=== PATIENT | male | born 1945 | race Caucasian/White ===

== ENCOUNTER 2016-08-18 09:37 | Emergency (ER) | payer OTHER, MEDICARE ==
[~2016-08-18] VITALS: Ht 177.8 cm; Wt 91.6 kg
[2016-08-18] MEDS ORDERED: OMEP40CA2 PO (09:59)
[2016-08-18] MEDS ORDERED: LISI40TAB PO (09:59)
[2016-08-18] MEDS ORDERED: ASPI81TA85 PO (09:59)
[2016-08-18] MEDS ORDERED: ATEN50TA2 PO (09:59)
[2016-08-18] MEDS ORDERED: ATOR1TAB21 PO (09:59)
[2016-08-18] MEDS ORDERED: LOSA100T36 PO (09:59)
[2016-08-18] MEDS ORDERED: HYDR12.55 PO (09:59)
[2016-08-18] MEDS ORDERED: PARO40TA87 PO (09:59)
--- NOTE | 2016-08-18 10:36 | REP ---
Clinical: Dyspnea. Cough. Technique: Portable semiupright. Comparison: 03/16/2012. Findings: The mediastinum and cardiac silhouette are relatively stable and normal for portable technique. Very mild cardiomegaly cannot be excluded. Lung ott demonstrate chronic interstitial changes. Subtle superimposed atelectasis cannot be excluded. No focal consolidation, effusion, or pneumothorax. Impression: Chronic stable changes. Cannot exclude subtle basilar atelectasis. Signed by Brian Holt MD 08/18/2016 10:28 A
[2016-08-18 10:47] LABS: BASO # 0.1 K/mm3 (0.0-0.2); BASO % 0.5 % (0.0-1.0); EOS # 0.3 K/mm3 (0.0-0.50); EOS % 1.8 % (0.0-3.0); LARGE UNSTAINED CELL # 0.3 K/mm3 (0.0-0.4); LARGE UNSTAINED CELL % 1.8 % (0.0-4.0); LYMPH # 2.2 K/mm3 (1.5-4.5); LYMPH % 12.5 % (24.0-44.0); MEAN CORPUSCULAR HEMOGLOBIN 31.3 pg (27.0-33.0); MEAN CORPUSCULAR HGB CONC 34.7 g/dl (32.0-36.5); MEAN CORPUSCULAR VOLUME 90.4 fl (80.0-96.0); MONO # 1.1 K/mm3 (0.0-0.8); MONO % 7.3 % (0.0-5.0); NEUTROPHILS # 11.8 K/mm3 (1.8-7.7); PLATELET COUNT, AUTOMATED 263 k/mm3 (150-450); RED CELL DISTRIBUTION WIDTH 12.1 % (11.5-14.5); WHITE BLOOD COUNT 15.5 K/mm3 (4.0-10.0)
[2016-08-18] MEDS ORDERED: ALBUTEROL SULFATE 2.5 MG/0.5 ML INH NEB SOLN NEB ONE ×8 (11:15→15:30)
[2016-08-18 11:16] LABS: ANION GAP 7 MEQ/L (8-16); BLOOD UREA NITROGEN 10 MG/DL (7-18); CALCIUM LEVEL 9.4 MG/DL (8.8-10.2); CARBON DIOXIDE LEVEL 31 MEQ/L (21-32); CHLORIDE LEVEL 102 MEQ/L (98-107); GLOMERULAR FILTRATION RATE > 60.0 (>49); GLUCOSE, FASTING 106 MG/DL (80-110); POTASSIUM SERUM 3.6 MEQ/L (3.5-5.1); SODIUM LEVEL 140 MEQ/L (136-145)
[2016-08-18] MEDS ORDERED: IPRATROPIUM 0.5MG/ALBUTEROL 2.5MG INH SOL UD 3ML (DUONEB)(J7620) NEB ONE (13:30)
[2016-08-18] MEDS ORDERED: ALBUTEROL SULFATE 2.5 MG/0.5 ML INH NEB SOLN INH ONE (13:30)
[2016-08-18] MEDS ORDERED: hydroCHLOROthiazide 25 MG TAB PO ONE (13:45)
[2016-08-18] MEDS ORDERED: LOSARTAN 50 MG TAB PO ONE (13:45)
[2016-08-18] MEDS ORDERED: ATENOLOL 50 MG TAB PO ONE (13:45)
[2016-08-18] MEDS ORDERED: LISINOPRIL 40 MG TAB PO ONE (13:45)
[2016-08-18] MEDS ORDERED: ATORVASTATIN 20 MG TAB PO ONE (13:45)
[2016-08-18] MEDS ORDERED: PARoxetine 20 MG TAB PO ONE (13:45)
[2016-08-18 14:26] VITALS: BP 132/98
[2016-08-18 14:38] VITALS: O2SAT 90
[2016-08-18] MEDS ORDERED: predniSONE 20 MG TAB PO ONE (15:15)
[2016-08-18] MEDS ORDERED: predniSONE 50 MG TAB PO ONE (15:15)
[2016-08-18] MEDS ORDERED: MOXIFLOXACIN 400 MG TAB PO ONE (15:15)
[2016-08-18] MEDS ORDERED: ALBU83IN INH (15:34)
[2016-08-18] MEDS ORDERED: PRED20TA PO (15:36)
[2016-08-18] MEDS ORDERED: MOXI1TAB PO (15:37)
--- NOTE | 2016-08-19 11:36 | ECGEPIP ---
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
== END 2016-08-18 15:58 | disposition home or self-care (01) ==
LOC: M ED 11:25
DX: J20.9 Acute bronchitis, unspecified (principal); R09.02 Hypoxemia; I10 Essential (primary) hypertension; Z86.73 Personal history of transient ischemic attack (TIA), and cerebral infarction without residual deficits; R25.1 Tremor, unspecified; Z99.81 Dependence on supplemental oxygen; F17.200 Nicotine dependence, unspecified, uncomplicated; Z79.899 Other long term (current) drug therapy; Z79.82 Long term (current) use of aspirin

== ENCOUNTER 2018-09-13 04:33 | Emergency (ER) | payer OTHER, MEDICARE ==
[~2018-09-13] VITALS: Ht 177.8 cm; Wt 90.9 kg
[~2018-09-13 04:33] MED LIST: ALBU83IN INH; ASPI81TA85 PO; ATEN50TA2 PO; ATOR1TAB21 PO; HYDR12.55 PO; LISI40TA PO; LOSA100T50 PO; MOXI1TAB PO; OMEP40CA2 PO; PARO40TA3 PO; PRED20TA PO
[2018-09-13] MEDS ORDERED: methylPREDNISolone INJ 125 MG/2 ML VIAL (J2930) IV ONE (05:00)
[2018-09-13] MEDS: IPRATROPIUM 0.5MG/ALBUTEROL 2.5MG INH SOL UD 3ML (DUONEB)(J7620) NEB PRN ×2 (05:09→05:10)
[2018-09-13 05:17] LABS: ABG BASE EXCESS 3.4 (-2.0-2.0); ABG HCO3 29.6 MEQ/L (22.0-26.0); ABG PARTIAL PRESSURE CO2 50.9 mmHg (35.0-45.0); ABG PARTIAL PRESSURE O2 65.5 mmHg (75.0-100.0); ABG STANDARD HCO3 27.3 MEQ/L (22.0-26.0); ABG TOTAL CO2 31.2 MEQ/L (23.0-31.0); ABG pH (ARTERIAL) 7.383 UNITS (7.350-7.450)
[2018-09-13] MEDS ORDERED: OMEP-218 PO (05:19)
[2018-09-13] MEDS ORDERED: MULT1TAB8 PO (05:19)
[2018-09-13] MEDS ORDERED: K-TA10TA2 PO (05:19)
[2018-09-13] MEDS ORDERED: FOLI400T PO (05:19)
[2018-09-13] MEDS ORDERED: VITA500C24 PO (05:19)
[2018-09-13 05:43] LABS: BASO # 0.1 10^3/uL (0.0-0.2); BASO % 0.4 % (0.0-1.0); EOS # 0.5 10^3/uL (0.0-0.50); EOS % 2.3 % (0.0-3.0); HEMATOCRIT 48.5 % (42.0-52.0); LYMPH # 2.6 10^3/uL (1.5-4.5); LYMPH % 12.5 % (24.0-44.0); MONO % 9.7 % (0.0-5.0); NEUTROPHILS # 15.7 10^3/uL (1.8-7.7); NEUTROPHILS % 74.6 % (36.0-66.0); PLATELET COUNT, AUTOMATED 281 10^3/uL (150-450); RED BLOOD COUNT 5.16 10^6/uL (4.30-6.10)
--- NOTE | 2018-09-13 05:53 | REP ---
Clinical: Cough and dyspnea . Comparison: 08/18/2016 . Technique: PA and lateral. Findings: The mediastinum and cardiac silhouette are normal. The lung ott demonstrate chronic-appearing changes without acute consolidation, effusion, or pneumothorax. The skeletal structures are intact and normal. Impression: 1. No acute cardiopulmonary process. Electronically Signed by Brian Holt MD 09/13/2018 05:44 A
[2018-09-13 06:07] LABS: BLOOD UREA NITROGEN 12 MG/DL (7-18); CALCIUM LEVEL 8.7 MG/DL (8.8-10.2); CARBON DIOXIDE LEVEL 34 MEQ/L (21-32); CHLORIDE LEVEL 101 MEQ/L (98-107); CK-MB VALUE MASS 1.8 NG/ML (<3.6); CPK CREATINE PHOSPHOKINASE 83 U/L (39-308); CREATININE FOR GFR 0.92 MG/DL (0.70-1.30); GLOMERULAR FILTRATION RATE > 60.0 (>42); GLUCOSE, FASTING 85 MG/DL (70-100); MB/CK RELATIVE INDEX 2.17 (< OR =4); NT-PRO BNP 877 PG/ML (<125); POTASSIUM SERUM 3.8 MEQ/L (3.5-5.1); SODIUM LEVEL 141 MEQ/L (136-145); TROPONIN I < 0.02 NG/ML (< 0.10)
[2018-09-13 06:30] VITALS: BP 170/87
[2018-09-13] MEDS ORDERED: [UNRECOGNIZED DRUG - OTHER] XX (06:56)
[2018-09-13] MEDS ORDERED: ZITHTAB2 PO (06:56)
[2018-09-13] MEDS ORDERED: PRED10TA2 PO (06:56)
[2018-09-13] MEDS ORDERED: Home Oxygen (06:56)
[2018-09-13] MEDS ORDERED: IPRA0.00 NEB (06:56)
--- NOTE | 2018-09-14 13:09 | ECGEPIP ---
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
== END 2018-09-13 07:06 | disposition home or self-care (01) ==
LOC: M ED 04:33
DX: J44.1 Chronic obstructive pulmonary disease with (acute) exacerbation (principal); R09.02 Hypoxemia; I10 Essential (primary) hypertension; E78.5 Hyperlipidemia, unspecified; F25.9 Schizoaffective disorder, unspecified; Z79.899 Other long term (current) drug therapy; Z79.82 Long term (current) use of aspirin; F17.210 Nicotine dependence, cigarettes, uncomplicated
CPT/HCPCS: 36600; 71045; 80048; 82550; 82553; 82803; 83605; 83880; 84443; 84484; 85025; 87040; 93005; 93041; 94640; 96374; 99285; J2930

== ENCOUNTER → 2018-12-11 | Outpatient (CLI) | payer OTHER, MEDICARE ==
[~2018-12-11] MED LIST changes: +FOLI400T PO; +Home Oxygen; +IPRA0.00 NEB; +K-TA10TA2 PO; +MULT1TAB8 PO; +OMEP-218 PO; +PRED10TA2 PO; +VITA500C24 PO; +ZITHTAB2 PO; +[UNRECOGNIZED DRUG - OTHER] XX
--- NOTE | 2018-12-11 11:31 | REP ---
Low-dose lung cancer screening CT Indication: Nicotine dependence. Comparison: None Technique: Axial low-dose CT of the chest was performed and reviewed in lung reformatted images only. No intravenous contrast was administered. Findings: The upper airways are patent. There is no suspicious nodule. There is bilateral linear/nodular atelectasis or scarring within the upper lobes anteriorly. There is bibasilar atelectasis. There is a tiny calcified granuloma the within the right lower lobe. There is no pleural effusion. Note is made of atherosclerotic calcification of the thoracic aorta and coronary arteries. Heart size is normal. There is no pericardial effusion. Note is made of old healed rib fracture deformity on the left. Impression: Lung-RADS 1. Continue annual screening with low-dose CT in 12 months. Electronically Signed by Vera Murillo MD 12/11/2018 11:23 A
== END ==
LOC: M RAD 10:52
PROVIDERS: ATTEND Internal Medicine Pulmonary Disease
DX: Z12.2 Encounter for screening for malignant neoplasm of respiratory organs (principal); F17.210 Nicotine dependence, cigarettes, uncomplicated

== ENCOUNTER → 2019-01-17 | Outpatient (CLI) | payer OTHER ==
[~2019-01-17] MED LIST changes: -OMEP40CA2 PO; +OMEP40CA97 PO
[2019-01-17 10:49] LABS: ABG BASE EXCESS 2.6 (-2.0-2.0); ABG HCO3 27.8 MEQ/L (22.0-26.0); ABG O2 SATURATION 95.4 % (95.0-99.0); ABG PARTIAL PRESSURE CO2 44.3 mmHg (35.0-45.0); ABG PARTIAL PRESSURE O2 72.6 mmHg (75.0-100.0); ABG STANDARD HCO3 26.8 MEQ/L (22.0-26.0); ABG TOTAL CO2 29.1 MEQ/L (23.0-31.0); ABG pH (ARTERIAL) 7.415 UNITS (7.350-7.450)
--- NOTE | 2019-01-17 11:32 | PFTRPT ---
Height: 68.50 Inches Weight: 205.00 Lbs BSA: 2.08 Diagnosis: J44.9 DATE OF STUDY: 01/17/2019 ORDERED BY: Dr. Mejia Spirometry: Pre and post bronchodilator study of excellent technical quality. Forced vital capacity reduced. FEV1 out of proportion. Obstructive index is, therefore, reduced. Flow Volume Loop: Expiratory limb of the flow volume loop consistent with very significant flow rate limitation. No significant bronchodilator response identified. Lung Volumes: Total lung capacity elevated. Residual volume consistent with very significant air trapping. Diffusing Capacity: Diffusing capacity is significantly reduced but is appropriate for alveolar volume. Hemoglobin: Hemoglobin acceptable at 13.1. Airway Mechanics: Airway resistance elevated with concomitant decrease in airway conductance. IMPRESSION: Moderate to severe obstructive ventilatory impairment with underlying air trapping and decrease in the absolute diffusing capacity. Please correlate clinically. MTDD
== END ==
LOC: M CARPUL 01-15 09:20
PROVIDERS: ATTEND Internal Medicine Pulmonary Disease
DX: J44.9 Chronic obstructive pulmonary disease, unspecified (principal)

== ENCOUNTER → 2019-09-18 | Outpatient (CLI) | payer OTHER ==
[2019-09-18 14:16] LABS: ALBUMIN 3.8 GM/DL (3.2-5.2); BLOOD UREA NITROGEN 23 MG/DL (7-18); CALCIUM LEVEL 9.6 MG/DL (8.8-10.2); CARBON DIOXIDE LEVEL 32 MEQ/L (21-32); CHLORIDE LEVEL 104 MEQ/L (98-107); CREATININE FOR GFR 1.03 MG/DL (0.70-1.30); GLOMERULAR FILTRATION RATE > 60.0 (>42); GLUCOSE, FASTING 114 MG/DL (70-100); MAGNESIUM LEVEL 2.2 MG/DL (1.8-2.4); NT-PRO BNP 52 PG/ML (<125); PHOSPHORUS LEVEL 2.9 MG/DL (2.5-4.9); POTASSIUM SERUM 4.1 MEQ/L (3.5-5.1); SODIUM LEVEL 138 MEQ/L (136-145)
== END ==
LOC: M PLALAB 11:39
PROVIDERS: ATTEND Internal Medicine Cardiovascular Disease
DX: R06.02 Shortness of breath (principal); I10 Essential (primary) hypertension

== ENCOUNTER → 2020-09-11 | Outpatient (CLI) | payer OTHER ==
[~2020-09-11] MED LIST changes: -ASPI81TA85 PO; +ASPI81TA86 PO; -FOLI400T PO; +FOLI400T13 PO; -LISI40TA PO; +LISI40TA4 PO
--- NOTE | 2020-09-14 16:07 | SLEEPCENT ---
NOCTURNAL POLYSOMNOGRAPHY DATE: 09/11/2020 ORDERED BY: Shant Hallman M.D. Nocturnal polysomnography was performed for the evaluation of sleep physiology in this patient with a history of excessive somnolence. 8 hours and 27 minutes of data were reviewed. There were 218.5 minutes of sleep identified. Sleep latency was prolonged at 203 minutes. REM sleep was not achieved. Overall sleep architecture showed poor progression with fragmentation. Sleep efficiency was only 43.8%. The electrocardiogram showed an irregular supraventricular rhythm, average heart rate 80 beats per minute, but heart rate range 50 to 90. EEG showed normal waveforms for wake and sleep. There were 75 respiratory events identified of 10 seconds in duration or greater for an apnea-hypopnea index of 20.6. The events were primarily obstructive, not exclusive to sleep stage nor body position. Arousals from respiratory events occurred 8 times per hour and oxygen desaturations were seen into the low 80s. Some activity was appreciated in the limb leads. Limb movement arousal index was 4.1. IMPRESSION: Obstructive sleep apnea syndrome (G47.33), 20.6 RECOMMENDATION: The patient should be encouraged to return to [facility] for [facility]. In the interim, alcohol and sedative avoidance should be practiced and caution exercised during the operation of motor vehicles.
== END ==
LOC: M SLEEP 20:00
PROVIDERS: ATTEND Family Medicine
DX: G47.33 Obstructive sleep apnea (adult) (pediatric) (principal)

== ENCOUNTER → 2020-10-22 | Outpatient (CLI) | payer OTHER ==
[~2020-10-22] MED LIST changes: +OMEP40CA4 PO; -OMEP40CA97 PO
--- NOTE | 2020-10-23 12:41 | SLEEPCENT ---
DATE: 10/22/2020 CPAP TITRATION ORDERED BY: Nocturnal polysomnography was performed for the titration of pressure therapy in this patient with obstructive sleep apnea syndrome, apnea-hypopnea index of 20.6. For testing a ResMed AirFit F20 full face mask of large size was used, 4 cm of water pressure were applied to the circuit, and the lights were extinguished. Eight hours and 10 minutes of data were reviewed. There were 216 minutes of sleep identified. Sleep latency was quite prolonged at 241 minutes. The patient did not achieve REM sleep. Sleep architecture showed some persistence of fragmentation and poor progression. Overall sleep efficiency was reduced at 45%. The electrocardiogram showed a sinus rhythm with PVC s. Average heart rate of 60 beats per minute. Rate ranged 40-80. EEG showed coarsening in background and fluoxetine-related eye movements. No other focal events were identified there were normal waveforms for wake and sleep. Persistence of respiratory events prompted an increase in pressure therapy and despite optimal mask fit and minimal air leak, the patient was changed to a bilevel device. Best sleep was seen on an inspiratory pressure of 10 over expiratory of 4. This was achieved late in the test. IMPRESSIONS: Obstructive sleep apnea syndrome (G47.33). RECOMMENDATION: Initiation of pressure therapy, inspiratory pressure of 10 over expiratory pressure of 4. Close clinical followup will be necessary as the titration was less than ideal pressure being achieved only late in the study. cc: Shant Valverde MD
== END ==
LOC: M SLEEP 20:05
PROVIDERS: ATTEND Family Medicine
DX: G47.33 Obstructive sleep apnea (adult) (pediatric) (principal)

== ENCOUNTER → 2020-11-11 | Outpatient (CLI) | payer OTHER ==
--- NOTE | 2020-11-11 11:40 | REP ---
INDICATION: J43.1 PANLOBULAR EMPHYSEMA. COMPARISON: 09/03/2018 TECHNIQUE: Two views FINDINGS: The lungs are emphysematous but free of active parenchymal disease. The heart is not enlarged. There is no failure. The mediastinum and pleural surfaces are unremarkable. No significant change since the previous study of 09/13/2018. IMPRESSION: No active process. <Electronically signed by Laith Slater > 11/11/20 [id number]
== END ==
LOC: M PLAIMG 10:42
PROVIDERS: ATTEND Internal Medicine Pulmonary Disease
DX: J43.1 Panlobular emphysema (principal)

== ENCOUNTER → 2020-12-09 | Outpatient (CLI) | payer OTHER ==
--- NOTE | 2020-12-09 16:17 | REP ---
INDICATION: SHORTNESS OF BREATH. COMPARISON: Multiple the latest 11/12/2019 TECHNIQUE: PA and lateral FINDINGS: The cardiomediastinal silhouette is stable. The heart is not enlarged. Basilar fibrotic changes noted status quo. No acute patchy parenchymal opacities or pleural effusions have developed. There is no change in the osseous structures. IMPRESSION: Stable chronic changes without evidence of acute cardiopulmonary disease. <Electronically signed by Pedro Pablo Melchor > 12/09/20 [id number]
[2020-12-09 17:55] LABS: BASO # 0.1 10^3/uL (0.0-0.2); BASO % 0.6 % (0.0-1.0); EOS # 0.5 10^3/uL (0.0-0.5); EOS % 4.2 % (0.0-3.0); HEMATOCRIT 44.4 % (42.0-52.0); HEMOGLOBIN 14.7 g/dl (13.5-17.5); LYMPH # 1.6 10^3/uL (1.5-5.0); MEAN CORPUSCULAR HEMOGLOBIN 29.6 pg (27.0-33.0); MEAN CORPUSCULAR HGB CONC 33.1 g/dl (32.0-36.5); MEAN CORPUSCULAR VOLUME 89.3 fl (80.0-96.0); MONO # 0.8 10^3/uL (0.0-0.8); MONO % 6.6 % (2.0-8.0); NEUTROPHILS # 9.3 10^3/uL (1.5-8.5); NEUTROPHILS % 74.4 % (36.0-66.0); PLATELET COUNT, AUTOMATED 398 10^3/uL (150-450); RED BLOOD COUNT 4.97 10^6/uL (4.30-6.10); WHITE BLOOD COUNT 12.5 10^3/uL (4.0-10.0)
[2020-12-09 18:14] LABS: BLOOD UREA NITROGEN 18 MG/DL (7-18); CALCIUM LEVEL 9.2 MG/DL (8.8-10.2); CARBON DIOXIDE LEVEL 33 MEQ/L (21-32); CHLORIDE LEVEL 98 MEQ/L (98-107); CREATININE FOR GFR 1.02 MG/DL (0.70-1.30); GLOMERULAR FILTRATION RATE > 60.0 (>42); GLUCOSE, FASTING 108 MG/DL (70-100); NT-PRO BNP 121 PG/ML (<125); POTASSIUM SERUM 4.7 MEQ/L (3.5-5.1); SODIUM LEVEL 134 MEQ/L (136-145)
== END ==
LOC: M PLAIMG 14:52
PROVIDERS: ATTEND Physician Assistant
DX: R06.02 Shortness of breath (principal)

== ENCOUNTER → 2021-03-05 | Outpatient (CLI) | payer OTHER ==
--- NOTE | 2021-03-06 18:54 | REP ---
INDICATION: SMOKER COMPARISON: 12/11/2018 TECHNIQUE: Axial noncontrast images from the thoracic inlet to the upper abdomen using low-dose lung screening technique (LDCT). FINDINGS: Moderate emphysematous changes and chronic scattered interstitial changes are again noted. 2 mm calcified granuloma in the right lower lobe remains stable. There is a small new area of non solid somewhat nodular/linear density along the perifissural apical aspect of the right major fissure. No acute consolidation, significant solid nodule, or mass lesion appreciated. No effusion. No pneumothorax. Tracheobronchial tree is patent. Mediastinum demonstrates stable atherosclerotic changes to the thoracic aorta and coronary arteries. IMPRESSION: Lung-RADS category 2. No suspicious nodule or mass. Perifissural non solid density at the apical margin of the right major fissure. Management recommendations include [address] follow-up examination. <Electronically signed by Brian Holt > 03/06/21 [id number]
== END ==
LOC: M RAD 15:17
PROVIDERS: ATTEND Internal Medicine Pulmonary Disease
DX: Z12.2 Encounter for screening for malignant neoplasm of respiratory organs (principal); Z87.891 Personal history of nicotine dependence

== ENCOUNTER 2021-09-16 17:33 | Inpatient (IN) | payer OTHER ==
[~2021-09-16] VITALS: Ht 177.8 cm; Wt 115.9 kg
[~2021-09-16 17:33] MED LIST changes: +ALBU2.5V10 INH; -ALBU83IN INH; +LOSA100T45 PO; -LOSA100T50 PO; +OMEP-173 PO; -OMEP-218 PO
[2021-09-16] MEDS ORDERED: ALBUTEROL SULFATE 2.5 MG/0.5 ML INH NEB SOLN NEB ONE (17:55)
[2021-09-16] MEDS ORDERED: methylPREDNISolone 125MG 2ML VIAL IV ONE (17:55)
[2021-09-16] MEDS ORDERED: IPRATROPIUM 0.5MG/ALBUTEROL 2.5MG INH SOL UD 3ML (DUONEB) NEB ONE (17:55)
[2021-09-16] MEDS ORDERED: FUROSEMIDE 40MG/4ML VIAL (J1940) IV ONE (18:05)
[2021-09-16] MEDS ORDERED: NITROGLYCERIN 2% OINT 1 GM *U/D* PKT TOP ONE (18:15)
[2021-09-16 18:17] LABS: ABG BASE EXCESS -0.1 (-2.0-2.0); ABG HCO3 26.5 MEQ/L (22.0-26.0); ABG O2 SATURATION 99.2 % (95.0-99.0); ABG PARTIAL PRESSURE CO2 51.1 mmHg (35.0-45.0); ABG PARTIAL PRESSURE O2 169.3 mmHg (75.0-100.0); ABG STANDARD HCO3 24.4 MEQ/L (22.0-26.0); ABG TOTAL CO2 28.1 MEQ/L (23.0-31.0); ABG pH (ARTERIAL) 7.333 UNITS (7.350-7.450)
[2021-09-16 18:30] LABS: BASO # 0.1 10^3/uL (0.0-0.2); BASO % 0.5 % (0.0-1.0); EOS # 0.5 10^3/uL (0.0-0.5); EOS % 3.6 % (0.0-3.0); HEMATOCRIT 43.2 % (42.0-52.0); LYMPH # 1.9 10^3/uL (1.5-5.0); LYMPH % 14.5 % (24.0-44.0); MEAN CORPUSCULAR HEMOGLOBIN 29.7 pg (27.0-33.0); MEAN CORPUSCULAR HGB CONC 32.4 g/dl (32.0-36.5); MEAN CORPUSCULAR VOLUME 91.7 fl (80.0-96.0); MONO # 1.5 10^3/uL (0.0-0.8); MONO % 11.4 % (2.0-8.0); NEUTROPHILS # 9.2 10^3/uL (1.5-8.5); NEUTROPHILS % 69.2 % (36.0-66.0); PLATELET COUNT, AUTOMATED 376 10^3/uL (150-450); RED BLOOD COUNT 4.71 10^6/uL (4.30-6.10); WHITE BLOOD COUNT 13.3 10^3/uL (4.0-10.0)
[2021-09-16 19:02] LABS: ALBUMIN 3.4 GM/DL (3.2-5.2); ALT/SGPT 33 U/L (12-78); BILIRUBIN,DIRECT 0.2 MG/DL (0.0-0.2); BILIRUBIN,TOTAL 0.9 MG/DL (0.2-1.0); BLOOD UREA NITROGEN 13 MG/DL (7-18); CALCIUM LEVEL 8.6 MG/DL (8.8-10.2); CARBON DIOXIDE LEVEL 31 MEQ/L (21-32); CHLORIDE LEVEL 104 MEQ/L (98-107); CREATININE FOR GFR 1.03 MG/DL (0.70-1.30); GLOMERULAR FILTRATION RATE > 60.0 (>42); GLUCOSE, FASTING 121 MG/DL (70-100); NT-PRO BNP 112 PG/ML (<125); POTASSIUM SERUM 3.9 MEQ/L (3.5-5.1); SODIUM LEVEL 140 MEQ/L (136-145); THYROXINE (T4) 5.6 UG/DL (4.5-12.0); TOTAL PROTEIN 6.8 GM/DL (6.4-8.2)
[2021-09-16] MEDS ORDERED: CARVedilol 6.25 MG TAB PO ONE (19:10)
[2021-09-16] MEDS ORDERED: LOSARTAN 50MG TABLET PO ONE (19:10)
[2021-09-16] MEDS ORDERED: ALBUTEROL SULFATE 2.5 MG/0.5 ML INH NEB SOLN NEB PRN (22:30)
[2021-09-16] MEDS ORDERED: GLUCAGON INJ 1MG VIAL SC PRN (22:30)
[2021-09-16] MEDS ORDERED: GLUCOSE 4GM CHEW TABLET PO PRN (22:30)
[2021-09-16] MEDS ORDERED: DEXTROSE 50% 50 ML SYRINGE IV PRN (22:30)
[2021-09-16] MEDS ORDERED: SPIR1CAP INH (23:47)
[2021-09-16] MEDS ORDERED: ATOR80TA59 PO (23:47)
[2021-09-16] MEDS ORDERED: AMLO1TAB25 PO (23:47)
[2021-09-16] MEDS ORDERED: OMEP-173 PO (23:47)
[2021-09-16] MEDS ORDERED: SPIR-10 PO (23:47)
[2021-09-16] MEDS ORDERED: SYMB16INH INH (23:47)
[2021-09-16] MEDS ORDERED: C 50TAB PO (23:47)
[2021-09-16] MEDS ORDERED: LORA-622 PO (23:47)
[2021-09-16] MEDS ORDERED: CARV6.25 PO (23:47)
[2021-09-16] MEDS ORDERED: POTA10TA67 PO (23:47)
[2021-09-16] MEDS ORDERED: HOME MED LIST COMPLETE! XX SCH (23:50)
[2021-09-17] MEDS: methylPREDNISolone 40MG 1ML VIAL IV SCH ×2 (00:12→06:33)
[2021-09-17] MEDS: HEPARIN SOD (PORCINE) 5000UNITS/ML 1ML VIAL/SYRINGE SC SCH ×3 (06:33→20:50)
[2021-09-17 07:05] LABS: BLOOD UREA NITROGEN 20 MG/DL (7-18); CALCIUM LEVEL 8.7 MG/DL (8.8-10.2); CARBON DIOXIDE LEVEL 28 MEQ/L (21-32); CHLORIDE LEVEL 105 MEQ/L (98-107); CREATININE FOR GFR 1.11 MG/DL (0.70-1.30); GLOMERULAR FILTRATION RATE > 60.0 (>42); GLUCOSE, FASTING 147 MG/DL (70-100); MAGNESIUM LEVEL 1.8 MG/DL (1.8-2.4); PHOSPHORUS LEVEL 2.9 MG/DL (2.5-4.9); POTASSIUM SERUM 4.2 MEQ/L (3.5-5.1); SODIUM LEVEL 139 MEQ/L (136-145)
[2021-09-17] MEDS: INSULIN LISPRO (NovoLOG) PER UNIT SC SCH ×3 (07:56→17:30)
[2021-09-17] MEDS ORDERED: ALBUTEROL SULFATE 2.5 MG/0.5 ML INH NEB SOLN NEB PRN (08:15)
[2021-09-17 08:37] LABS: HEMATOCRIT 40.4 % (42.0-52.0); HEMOGLOBIN 13.2 g/dl (13.5-17.5); MEAN CORPUSCULAR HEMOGLOBIN 29.7 pg (27.0-33.0); MEAN CORPUSCULAR HGB CONC 32.7 g/dl (32.0-36.5); MEAN CORPUSCULAR VOLUME 90.8 fl (80.0-96.0); PLATELET COUNT, AUTOMATED 366 10^3/uL (150-450); RED BLOOD COUNT 4.45 10^6/uL (4.30-6.10); WHITE BLOOD COUNT 11.9 10^3/uL (4.0-10.0)
[2021-09-17] MEDS: IPRATROPIUM 0.5MG/ALBUTEROL 2.5MG INH SOL UD 3ML (DUONEB) NEB SCH ×4 (08:51→19:58)
[2021-09-17] MEDS: methylPREDNISolone 125MG 2ML VIAL IV SCH ×2 (15:55→20:50)
[2021-09-17 16:00] VITALS: BP 156/91
[2021-09-17 17:58] VITALS: BP 142/83
[2021-09-17 19:45] VITALS: BP 138/85
[2021-09-17 23:25] VITALS: BP 144/82
[2021-09-18 04:05] VITALS: BP 147/69
[2021-09-18] MEDS: methylPREDNISolone 125MG 2ML VIAL IV SCH ×3 (05:33→21:48)
[2021-09-18] MEDS: HEPARIN SOD (PORCINE) 5000UNITS/ML 1ML VIAL/SYRINGE SC SCH ×3 (05:34→21:49)
[2021-09-18 06:00] LABS: HEMATOCRIT 39.6 % (42.0-52.0); HEMOGLOBIN 12.9 g/dl (13.5-17.5); MEAN CORPUSCULAR HEMOGLOBIN 30.1 pg (27.0-33.0); MEAN CORPUSCULAR HGB CONC 32.6 g/dl (32.0-36.5); MEAN CORPUSCULAR VOLUME 92.3 fl (80.0-96.0); PLATELET COUNT, AUTOMATED 332 10^3/uL (150-450); RED BLOOD COUNT 4.29 10^6/uL (4.30-6.10); WHITE BLOOD COUNT 28.4 10^3/uL (4.0-10.0)
[2021-09-18 06:17] LABS: BLOOD UREA NITROGEN 23 MG/DL (7-18); CALCIUM LEVEL 9.1 MG/DL (8.8-10.2); CARBON DIOXIDE LEVEL 31 MEQ/L (21-32); CHLORIDE LEVEL 105 MEQ/L (98-107); CREATININE FOR GFR 1.11 MG/DL (0.70-1.30); GLOMERULAR FILTRATION RATE > 60.0 (>42); GLUCOSE, FASTING 146 MG/DL (70-100); POTASSIUM SERUM 4.4 MEQ/L (3.5-5.1); SODIUM LEVEL 139 MEQ/L (136-145)
[2021-09-18 08:00] VITALS: BP 147/84
[2021-09-18] MEDS: IPRATROPIUM 0.5MG/ALBUTEROL 2.5MG INH SOL UD 3ML (DUONEB) NEB SCH ×4 (08:21→19:26)
[2021-09-18] MEDS: SYMBICORT 160/4.5MCG INHALER 6GM INH SCH ×2 (08:21→19:25)
[2021-09-18] MEDS: PARoxetine 20MG TABLET PO SCH (08:59)
[2021-09-18] MEDS: SPIRONOLACTONE 25 MG TAB PO SCH (08:59)
[2021-09-18] MEDS: TIOTROPIUM INHALER/CAPSULE (SPIRIVA) INH SCH (09:00)
[2021-09-18] MEDS ORDERED: cefTRIAXone SOD 1 GM in D5W MINI-BAG PLUS 50 ML IV SCH (09:00)
[2021-09-18] MEDS: ASCORBIC ACID 500 MG TAB PO SCH (09:00)
[2021-09-18] MEDS: OMEPRAZOLE 20MG CAP PO SCH (09:00)
[2021-09-18] MEDS: LORATADINE 10 MG TAB PO SCH (09:00)
[2021-09-18] MEDS: POTASSIUM CHLORIDE 10MEQ SR TABLET PO SCH (09:01)
[2021-09-18] MEDS: CARVedilol 6.25 MG TAB PO SCH ×2 (09:01→21:50)
[2021-09-18] MEDS: INSULIN LISPRO (NovoLOG) PER UNIT SC SCH ×2 (09:02→12:00)
[2021-09-18] MEDS: DOXYCYCLINE HYCLATE 100MG TABLET PO SCH ×2 (09:13→21:49)
[2021-09-18] MEDS ORDERED: ISOVUE-370 76% 100ML VIAL As Ordered ONE (12:47)
[2021-09-18 16:00] VITALS: BP 153/90
[2021-09-18 19:59] VITALS: BP 163/84
[2021-09-18] MEDS: ATORVASTATIN 20 MG TAB PO SCH (21:49)
[2021-09-18] MEDS: LOSARTAN 50MG TABLET PO SCH (21:57)
[2021-09-19 04:15] VITALS: BP 155/87
[2021-09-19] MEDS: HEPARIN SOD (PORCINE) 5000UNITS/ML 1ML VIAL/SYRINGE SC SCH ×3 (05:58→21:16)
[2021-09-19] MEDS: methylPREDNISolone 125MG 2ML VIAL IV SCH ×3 (05:58→21:16)
[2021-09-19 06:36] LABS: HEMATOCRIT 38.6 % (42.0-52.0); HEMOGLOBIN 12.6 g/dl (13.5-17.5); MEAN CORPUSCULAR HEMOGLOBIN 29.8 pg (27.0-33.0); MEAN CORPUSCULAR HGB CONC 32.6 g/dl (32.0-36.5); MEAN CORPUSCULAR VOLUME 91.3 fl (80.0-96.0); PLATELET COUNT, AUTOMATED 351 10^3/uL (150-450); RED BLOOD COUNT 4.23 10^6/uL (4.30-6.10)
[2021-09-19 06:40] LABS: WHITE BLOOD COUNT 30.7 10^3/uL (4.0-10.0)
[2021-09-19 07:05] LABS: BLOOD UREA NITROGEN 22 MG/DL (7-18); CALCIUM LEVEL 9.5 MG/DL (8.8-10.2); CARBON DIOXIDE LEVEL 28 MEQ/L (21-32); CHLORIDE LEVEL 107 MEQ/L (98-107); CREATININE FOR GFR 0.94 MG/DL (0.70-1.30); GLOMERULAR FILTRATION RATE > 60.0 (>42); GLUCOSE, FASTING 141 MG/DL (70-100); POTASSIUM SERUM 4.1 MEQ/L (3.5-5.1); SODIUM LEVEL 142 MEQ/L (136-145)
[2021-09-19] MEDS: IPRATROPIUM 0.5MG/ALBUTEROL 2.5MG INH SOL UD 3ML (DUONEB) NEB SCH ×4 (07:14→20:00)
[2021-09-19] MEDS: TIOTROPIUM INHALER/CAPSULE (SPIRIVA) INH SCH (07:15)
[2021-09-19] MEDS: SYMBICORT 160/4.5MCG INHALER 6GM INH SCH ×2 (07:15→20:20)
[2021-09-19 08:00] VITALS: BP 140/80
[2021-09-19] MEDS: PARoxetine 20MG TABLET PO SCH (09:37)
[2021-09-19] MEDS: OMEPRAZOLE 20MG CAP PO SCH (09:37)
[2021-09-19] MEDS: SPIRONOLACTONE 25 MG TAB PO SCH (09:37)
[2021-09-19] MEDS: ASCORBIC ACID 500 MG TAB PO SCH (09:37)
[2021-09-19] MEDS: LORATADINE 10 MG TAB PO SCH (09:37)
[2021-09-19] MEDS: CARVedilol 6.25 MG TAB PO SCH ×2 (09:38→21:15)
[2021-09-19] MEDS: POTASSIUM CHLORIDE 10MEQ SR TABLET PO SCH (09:39)
[2021-09-19 16:00] VITALS: BP 154/80
[2021-09-19 20:02] VITALS: BP 158/80
[2021-09-19] MEDS: ATORVASTATIN 20 MG TAB PO SCH (21:15)
[2021-09-19] MEDS: LOSARTAN 50MG TABLET PO SCH (21:15)
[2021-09-20 03:46] VITALS: BP 150/70
[2021-09-20] MEDS: HEPARIN SOD (PORCINE) 5000UNITS/ML 1ML VIAL/SYRINGE SC SCH ×3 (05:18→20:03)
[2021-09-20] MEDS: methylPREDNISolone 125MG 2ML VIAL IV SCH ×2 (05:19→17:56)
[2021-09-20 06:12] LABS: HEMATOCRIT 37.8 % (42.0-52.0); HEMOGLOBIN 12.5 g/dl (13.5-17.5); MEAN CORPUSCULAR HEMOGLOBIN 30.2 pg (27.0-33.0); MEAN CORPUSCULAR HGB CONC 33.1 g/dl (32.0-36.5); MEAN CORPUSCULAR VOLUME 91.3 fl (80.0-96.0); PLATELET COUNT, AUTOMATED 326 10^3/uL (150-450); RED BLOOD COUNT 4.14 10^6/uL (4.30-6.10); WHITE BLOOD COUNT 25.3 10^3/uL (4.0-10.0)
[2021-09-20 06:35] LABS: BLOOD UREA NITROGEN 21 MG/DL (7-18); CALCIUM LEVEL 9.3 MG/DL (8.8-10.2); CARBON DIOXIDE LEVEL 29 MEQ/L (21-32); CHLORIDE LEVEL 106 MEQ/L (98-107); GLOMERULAR FILTRATION RATE > 60.0 (>42); GLUCOSE, FASTING 137 MG/DL (70-100); SODIUM LEVEL 142 MEQ/L (136-145)
[2021-09-20] MEDS: IPRATROPIUM 0.5MG/ALBUTEROL 2.5MG INH SOL UD 3ML (DUONEB) NEB SCH ×4 (08:00→20:00)
[2021-09-20 08:02] VITALS: BP_SYST 148; BP_SYST 164; BP_DIAS 68; BP_DIAS 85
[2021-09-20] MEDS: SYMBICORT 160/4.5MCG INHALER 6GM INH SCH ×2 (08:15→20:35)
[2021-09-20] MEDS: TIOTROPIUM INHALER/CAPSULE (SPIRIVA) INH SCH (08:16)
[2021-09-20] MEDS: SPIRONOLACTONE 25 MG TAB PO SCH (08:26)
[2021-09-20] MEDS: PARoxetine 20MG TABLET PO SCH (08:26)
[2021-09-20] MEDS: ASCORBIC ACID 500 MG TAB PO SCH (08:27)
[2021-09-20] MEDS: OMEPRAZOLE 20MG CAP PO SCH (08:27)
[2021-09-20] MEDS: CARVedilol 6.25 MG TAB PO SCH ×2 (08:27→20:03)
[2021-09-20] MEDS: LORATADINE 10 MG TAB PO SCH (08:28)
[2021-09-20] MEDS: POTASSIUM CHLORIDE 10MEQ SR TABLET PO SCH (08:28)
[2021-09-20 16:23] VITALS: BP 145/76
[2021-09-20 19:30] VITALS: BP 182/95
[2021-09-20] MEDS: LOSARTAN 50MG TABLET PO SCH (20:02)
[2021-09-20] MEDS: ATORVASTATIN 20 MG TAB PO SCH (20:03)
[2021-09-20 21:25] VITALS: BP 158/90
[2021-09-20 22:00] VITALS: BP 152/88
[2021-09-21] MEDS: methylPREDNISolone 125MG 2ML VIAL IV SCH (05:01)
[2021-09-21] MEDS: HEPARIN SOD (PORCINE) 5000UNITS/ML 1ML VIAL/SYRINGE SC SCH (05:02)
[2021-09-21 06:00] VITALS: BP 154/90
[2021-09-21 06:01] LABS: HEMATOCRIT 41.3 % (42.0-52.0); HEMOGLOBIN 13.2 g/dl (13.5-17.5); MEAN CORPUSCULAR HEMOGLOBIN 29.7 pg (27.0-33.0); MEAN CORPUSCULAR VOLUME 92.8 fl (80.0-96.0); PLATELET COUNT, AUTOMATED 353 10^3/uL (150-450); RED BLOOD COUNT 4.45 10^6/uL (4.30-6.10); WHITE BLOOD COUNT 23.4 10^3/uL (4.0-10.0)
[2021-09-21 06:33] LABS: BLOOD UREA NITROGEN 25 MG/DL (7-18); CALCIUM LEVEL 9.6 MG/DL (8.8-10.2); CARBON DIOXIDE LEVEL 33 MEQ/L (21-32); CHLORIDE LEVEL 103 MEQ/L (98-107); CREATININE FOR GFR 1.01 MG/DL (0.70-1.30); GLOMERULAR FILTRATION RATE > 60.0 (>42); GLUCOSE, FASTING 127 MG/DL (70-100); POTASSIUM SERUM 5.2 MEQ/L (3.5-5.1); SODIUM LEVEL 141 MEQ/L (136-145)
[2021-09-21] MEDS: SYMBICORT 160/4.5MCG INHALER 6GM INH SCH (08:00)
[2021-09-21] MEDS: TIOTROPIUM INHALER/CAPSULE (SPIRIVA) INH SCH (08:00)
[2021-09-21] MEDS: IPRATROPIUM 0.5MG/ALBUTEROL 2.5MG INH SOL UD 3ML (DUONEB) NEB SCH (08:00)
[2021-09-21] MEDS: OMEPRAZOLE 20MG CAP PO SCH (08:57)
[2021-09-21] MEDS: LORATADINE 10 MG TAB PO SCH (08:57)
[2021-09-21] MEDS: ASCORBIC ACID 500 MG TAB PO SCH (08:57)
[2021-09-21] MEDS: PARoxetine 20MG TABLET PO SCH (08:57)
[2021-09-21 08:58] VITALS: BP 151/91
[2021-09-21] MEDS: CARVedilol 6.25 MG TAB PO SCH (08:58)
[2021-09-21] MEDS ORDERED: PRED10TA2 PO (10:25)
[2021-09-22] MEDS ORDERED: predniSONE 20 MG TAB PO SCH (09:00)
== END 2021-09-21 11:52 | disposition home or self-care (01) | DRG 189 ==
LOC: M ED 17:33 → M ED INP 22:27 → ENRESERV 09-17 12:23 → M PCU 09-17 15:45 → M MSPAV 09-20 19:30
PROVIDERS: ADMIT Internal Medicine; ATTEND Family Medicine
PROC: 5A09357 Assistance with Respiratory Ventilation, Less than 24 Consecutive Hours, Continuous Positive Airway Pressure (ICD-10-PCS; 2021-09-16)
PROC: B246ZZZ Ultrasonography of Right and Left Heart (ICD-10-PCS; principal; 2021-09-17)
DX: J96.01 Acute respiratory failure with hypoxia (principal); J44.1 Chronic obstructive pulmonary disease with (acute) exacerbation; Z99.81 Dependence on supplemental oxygen; Z87.891 Personal history of nicotine dependence; I10 Essential (primary) hypertension; I25.10 Atherosclerotic heart disease of native coronary artery without angina pectoris; J96.02 Acute respiratory failure with hypercapnia; E78.5 Hyperlipidemia, unspecified; K21.9 Gastro-esophageal reflux disease without esophagitis; F32.A Depression, unspecified; Z79.82 Long term (current) use of aspirin; Z79.52 Long term (current) use of systemic steroids; Z79.2 Long term (current) use of antibiotics; Z20.822 Contact with and (suspected) exposure to COVID-19; G47.33 Obstructive sleep apnea (adult) (pediatric); D72.829 Elevated white blood cell count, unspecified; E78.00 Pure hypercholesterolemia, unspecified

== ENCOUNTER → 2021-11-23 | Outpatient (CLI) | payer OTHER ==
[~2021-11-23] MED LIST changes: +AMLO1TAB25 PO; +ATOR80TA59 PO; +C 50TAB PO; +CARV6.25 PO; +LORA-622 PO; +POTA10TA67 PO; +SPIR-10 PO; +SPIR1CAP INH; +SYMB16INH INH
== END ==
LOC: M RAD 10:41
PROVIDERS: ATTEND Internal Medicine Pulmonary Disease
DX: R91.8 Other nonspecific abnormal finding of lung field (principal)

== ENCOUNTER 2022-04-17 15:24 | Emergency (ER) | payer MEDICARE, OTHER ==
[~2022-04-17] VITALS: Ht 177.8 cm; Wt 114.6 kg
[2022-04-17 16:55] LABS: BASO % 0.2 % (0.0-1.0); EOS # 0.2 10^3/uL (0.0-0.5); EOS % 1.7 % (0.0-3.0); HEMATOCRIT 36.7 % (42.0-52.0); HEMOGLOBIN 11.3 g/dl (13.5-17.5); LYMPH # 1.1 10^3/uL (1.5-5.0); MEAN CORPUSCULAR HEMOGLOBIN 28.5 pg (27.0-33.0); MEAN CORPUSCULAR HGB CONC 30.8 g/dl (32.0-36.5); MEAN CORPUSCULAR VOLUME 92.7 fl (80.0-96.0); MONO # 0.6 10^3/uL (0.0-0.8); MONO % 4.5 % (2.0-8.0); NEUTROPHILS # 10.3 10^3/uL (1.5-8.5); NEUTROPHILS % 83.9 % (36.0-66.0); PLATELET COUNT, AUTOMATED 518 10^3/uL (150-450); RED BLOOD COUNT 3.96 10^6/uL (4.30-6.10); WHITE BLOOD COUNT 12.3 10^3/uL (4.0-10.0)
[2022-04-17 17:06] LABS: INR 0.97; PROTHROMBIN TIME 13.1 SECONDS (12.5-14.5)
[2022-04-17 17:07] LABS: PARTIAL THROMBOPLASTIN TIME 27.2 SECONDS (24.8-34.2)
[2022-04-17 17:17] LABS: LIPASE 421 U/L (12-53)
[2022-04-17 17:19] LABS: ALBUMIN 2.8 G/DL (3.2-5.2); ALKALINE PHOSPHATASE 606 U/L (46-116); ALT/SGPT 190 U/L (7.0-40); AST/SGOT 134 U/L (<34); BILIRUBIN,DIRECT 5.2 MG/DL (<0.4); BILIRUBIN,TOTAL 6.9 MG/DL (0.3-1.2); BLOOD UREA NITROGEN 27 MG/DL (9-23); CALCIUM LEVEL 8.6 MG/DL (8.3-10.6); CARBON DIOXIDE LEVEL 28 MMOL/L (20-31); CHLORIDE LEVEL 103 MMOL/L (98-107); CREATININE FOR GFR 1.29 MG/DL (0.70-1.30); GLUCOSE, FASTING 166 MG/DL (74-106); SODIUM LEVEL 139 MMOL/L (136-145); TOTAL PROTEIN 6.6 G/DL (5.7-8.2)
[2022-04-17 17:40] LABS: HEPATITIS B SURFACE ANTIGEN NEGATIVE (NEGATIVE)
[2022-04-17] MEDS ORDERED: ISOVUE-370 76% 100ML VIAL As Ordered ONE (17:42)
[2022-04-17 17:59] LABS: HEPATITIS C VIRUS ABY INDEX 0.1 INDEX (<0.8)
[2022-04-17 18:00] LABS: HEPATITIS B CORE ANTIBODY IGM NEGATIVE (NEGATIVE)
[2022-04-17 19:11] LABS: RSV AMPLIFICATION NEGATIVE (NEGATIVE)
[2022-04-17] MEDS ORDERED: SYMBICORT 160/4.5MCG INHALER 6GM INH ONE (23:55)
[2022-04-18] MEDS ORDERED: SYMBICORT 160/4.5MCG INHALER 6GM INH SCH (08:00)
[2022-04-18] MEDS ORDERED: NS 1,000 ML IV ONE (08:15)
[2022-04-18] MEDS ORDERED: PIPERACILLIN/TAZOBACTAM SOD 4.5 GM in D5W MINI-BAG PLUS 50 ML IV ONE (08:20)
[2022-04-18 11:05] VITALS: BP 151/85
== END 2022-04-18 11:10 | disposition short-term general hospital (02) ==
LOC: M ED 15:24
DX: U07.1 COVID-19 (principal); E80.6 Other disorders of bilirubin metabolism; R74.8 Abnormal levels of other serum enzymes; K83.8 Other specified diseases of biliary tract; K86.89 Other specified diseases of pancreas; I10 Essential (primary) hypertension; E78.9 Disorder of lipoprotein metabolism, unspecified; J44.9 Chronic obstructive pulmonary disease, unspecified; Z87.891 Personal history of nicotine dependence; Z79.899 Other long term (current) drug therapy; Z79.51 Long term (current) use of inhaled steroids
CPT/HCPCS: 74177; 80048; 80076; 83690; 85025; 85610; 85730; 86705; 86709; 86803; 87040; 87340; 87631; 93041; 96361; 96374; 99285; J2543; Q9967

== ENCOUNTER → 2022-05-20 | Outpatient (CLI) | payer MEDICARE, OTHER ==
[~2022-05-20] MED LIST changes: +CENTCHW3 PO; +LIDOCAINE 1% MDV 20ML VIAL As Ordered ONE; +MIDAZOLAM INJ 2MG/2ML VIAL As Ordered ONE; +MULT-90 PO; +NS 1,000 ML IV SCH; +POTA-151 PO; +ceFAZolin 2 GM/D5W 50 ML IV BAG As Ordered ONE; +ceFAZolin SOD 2 GM in IV 1 EA IV ONE; +diphenhydrAMINE 50MG/ML VIAL As Ordered ONE; +fentaNYL 100 MCG/2 ML INJECTION As Ordered ONE
[2022-05-20 12:00] VITALS: BP 122/66
== END ==
LOC: M IRPRO 07:47
PROVIDERS: ATTEND Specialist
DX: C25.9 Malignant neoplasm of pancreas, unspecified (principal); Z79.899 Other long term (current) drug therapy; Z88.8 Allergy status to other drugs, medicaments and biological substances
CPT/HCPCS: 36561; 87635; 99152; 99153; C1769; C1788; C1894; J0690; J2250; J3010

== ENCOUNTER → 2022-05-30 | Outpatient (CLI) | payer OTHER, MEDICARE ==
[~2022-05-30] MED LIST changes: -LIDOCAINE 1% MDV 20ML VIAL As Ordered ONE; +METO10TA2 PO; -MIDAZOLAM INJ 2MG/2ML VIAL As Ordered ONE; -NS 1,000 ML IV SCH; -ceFAZolin 2 GM/D5W 50 ML IV BAG As Ordered ONE; -ceFAZolin SOD 2 GM in IV 1 EA IV ONE; -diphenhydrAMINE 50MG/ML VIAL As Ordered ONE; -fentaNYL 100 MCG/2 ML INJECTION As Ordered ONE
== END ==
LOC: M PLARAD 12:32
PROVIDERS: ATTEND Specialist
DX: C25.0 Malignant neoplasm of head of pancreas (principal)
CPT/HCPCS: 78815; A9552

== ENCOUNTER → 2022-06-02 | Outpatient (CLI) | payer MEDICARE, OTHER ==
[~2022-06-02] MED LIST changes: +ONDA-83 PO
== END ==
LOC: M ONCR 13:03
PROVIDERS: ATTEND General Practice
DX: C25.0 Malignant neoplasm of head of pancreas (principal); J44.9 Chronic obstructive pulmonary disease, unspecified; I10 Essential (primary) hypertension; I27.9 Pulmonary heart disease, unspecified; R25.1 Tremor, unspecified; Z79.51 Long term (current) use of inhaled steroids; Z79.899 Other long term (current) drug therapy; Z87.891 Personal history of nicotine dependence; Z88.8 Allergy status to other drugs, medicaments and biological substances; Z95.5 Presence of coronary angioplasty implant and graft; Z99.81 Dependence on supplemental oxygen

== ENCOUNTER → 2022-06-07 | Outpatient (POV) | payer MEDICARE, OTHER ==
[~2022-06-07] VITALS: Ht 177.8 cm; Wt 109.0 kg
[2022-06-07 13:40] VITALS: BP 151/80
== END ==
LOC: M IRPOV 13:16
PROVIDERS: ATTEND Radiology Diagnostic Radiology
DX: Z45.2 Encounter for adjustment and management of vascular access device (principal); Z88.8 Allergy status to other drugs, medicaments and biological substances

== ENCOUNTER 2022-06-24 11:46 | Outpatient (RCR) | payer MEDICARE, OTHER | END 2022-07-01 | LOC: M ONCR 11:46 | PROVIDERS: ATTEND General Practice | DX: C25.0 Malignant neoplasm of head of pancreas (principal) ==

== ENCOUNTER 2022-08-09 11:48 | Inpatient (IN) | payer MEDICARE, OTHER ==
[~2022-08-09] VITALS: Ht 177.8 cm; Wt 113.0 kg
[~2022-08-09 11:48] MED LIST changes: +LIDO1CRE42 TOP; -LOSA100T45 PO; +LOSA100T46 PO; +PROC10TA5 PO
[2022-08-09] MEDS ORDERED: fentaNYL 100 MCG/2 ML INJECTION IV PRN (12:20)
[2022-08-09] MEDS ORDERED: methylPREDNISolone 125MG 2ML VIAL IV ONE (12:20)
[2022-08-09] MEDS ORDERED: IPRATROPIUM 0.5MG/ALBUTEROL 2.5MG INH SOL UD 3ML (DUONEB) NEB ONE (12:20)
[2022-08-09] MEDS ORDERED: ACETAMINOPHEN TAB 650MG DOSE (2X325MG) PO ONE (12:20)
[2022-08-09] MEDS ORDERED: ONDANSETRON 4MG 2ML VIAL IV ONE (12:25)
[2022-08-09 12:43] LABS: HEMOGLOBIN 9.8 g/dl (13.5-17.5); MEAN CORPUSCULAR HEMOGLOBIN 28.2 pg (27.0-33.0); MEAN CORPUSCULAR HGB CONC 32.7 g/dl (32.0-36.5); MEAN CORPUSCULAR VOLUME 86.2 fl (80.0-96.0); PLATELET COUNT, AUTOMATED 772 10^3/uL (150-450); RED BLOOD COUNT 3.48 10^6/uL (4.30-6.10); WHITE BLOOD COUNT 19.8 10^3/uL (4.0-10.0)
[2022-08-09 12:52] LABS: CK-MB VALUE MASS < 1.0 NG/ML (<3.6); LIPASE 19 U/L (12-53)
[2022-08-09 12:53] LABS: CPK CREATINE PHOSPHOKINASE 17 U/L (46-171); MB/CK RELATIVE INDEX 5.88 (< OR =4)
[2022-08-09 12:54] LABS: ALBUMIN 2.5 G/DL (3.2-5.2); ALKALINE PHOSPHATASE 360 U/L (46-116); ALT/SGPT 131 U/L (7.0-40); AST/SGOT 71 U/L (<34); BILIRUBIN,DIRECT 1.4 MG/DL (<0.4); BILIRUBIN,TOTAL 2.6 MG/DL (0.3-1.2); BLOOD UREA NITROGEN 34 MG/DL (9-23); CALCIUM LEVEL 9.1 MG/DL (8.3-10.6); CARBON DIOXIDE LEVEL 29 MMOL/L (20-31); CHLORIDE LEVEL 94 MMOL/L (98-107); GLOMERULAR FILTRATION RATE 31.2 (>42); GLUCOSE, FASTING 111 MG/DL (74-106); POTASSIUM SERUM 4.2 MMOL/L (3.5-5.1); SODIUM LEVEL 130 MMOL/L (136-145); TOTAL PROTEIN 5.8 G/DL (5.7-8.2)
[2022-08-09 12:57] LABS: RSV AMPLIFICATION NEGATIVE (NEGATIVE)
[2022-08-09 13:02] LABS: INR 1.14; PROTHROMBIN TIME 14.8 SECONDS (12.5-14.5)
[2022-08-09] MEDS ORDERED: PIPERACILLIN/TAZOBACTAM SOD 4.5 GM in D5W MINI-BAG PLUS 50 ML IV ONE (13:25)
[2022-08-09] MEDS ORDERED: NS 3,270 ML in IV 1 EA IV ONE (13:25)
[2022-08-09 13:48] LABS: ATYPICAL LYMPH 1 % (0-5); BASOPHILS 1 % (0-1); LYMPHOCYTES 7 % (16-44); MONOCYTES 15 % (0-5); NEUTROPHILS 69 % (28-66)
[2022-08-09 13:49] LABS: HYPOCHROMASIA 2+; PLATELET ESTIMATE INCREASED (NORMAL)
[2022-08-09] MEDS ORDERED: VENTAER INH (16:43)
[2022-08-09] MEDS ORDERED: MULT-6 PO (16:43)
[2022-08-09] MEDS ORDERED: FOLI0.4T5 PO (16:43)
[2022-08-09] MEDS ORDERED: IPRATROPIUM 0.5MG/ALBUTEROL 2.5MG INH SOL UD 3ML (DUONEB) NEB PRN (16:55)
[2022-08-09] MEDS: NS 1,000 ML IV SCH (16:55)
[2022-08-09] MEDS ORDERED: HOME MED LIST COMPLETE! XX SCH (16:55)
[2022-08-09] MEDS ORDERED: ALBUTEROL SULFATE 2.5MG/0.5ML INH NEB SOLN NEB PRN (17:00)
[2022-08-09] MEDS ORDERED: ONDANSETRON 4MG TAB PO PRN (17:00)
[2022-08-09] MEDS ORDERED: MIRALAX *UNIT DOSE* 17GM PACKET PO PRN (17:00)
[2022-08-09] MEDS: IPRATROPIUM 0.5MG/ALBUTEROL 2.5MG INH SOL UD 3ML (DUONEB) NEB SCH (18:09)
[2022-08-09] MEDS: PIPERACILLIN/TAZOBACTAM SOD 3.375 GM in D5W MINI-BAG PLUS 50 ML IV SCH (20:00)
[2022-08-09] MEDS: SYMBICORT 160/4.5MCG INHALER 6GM INH SCH (20:00)
[2022-08-09 20:30] VITALS: BP 117/65
[2022-08-09] MEDS: ATORVASTATIN 20 MG TAB PO SCH (21:46)
[2022-08-09] MEDS: SENNA 8.6 MG TAB (SENOKOT) PO SCH (21:46)
[2022-08-09] MEDS: CARVedilol 6.25 MG TAB PO SCH (21:47)
[2022-08-09] MEDS: HEPARIN SOD (PORCINE) 5000UNITS/ML 1ML VIAL/SYRINGE SC SCH (21:48)
[2022-08-09 23:55] VITALS: BP 117/64
[2022-08-10] MEDS: PIPERACILLIN/TAZOBACTAM SOD 3.375 GM in D5W MINI-BAG PLUS 50 ML IV SCH ×4 (02:00→20:03)
[2022-08-10] MEDS: IPRATROPIUM 0.5MG/ALBUTEROL 2.5MG INH SOL UD 3ML (DUONEB) NEB SCH ×4 (02:00→19:46)
[2022-08-10] MEDS: HEPARIN SOD (PORCINE) 5000UNITS/ML 1ML VIAL/SYRINGE SC SCH ×3 (05:52→22:05)
[2022-08-10 06:00] VITALS: BP 115/63
[2022-08-10 06:47] LABS: HEMATOCRIT 26.5 % (42.0-52.0); HEMOGLOBIN 8.8 g/dl (13.5-17.5); MEAN CORPUSCULAR HEMOGLOBIN 28.9 pg (27.0-33.0); MEAN CORPUSCULAR HGB CONC 33.2 g/dl (32.0-36.5); MEAN CORPUSCULAR VOLUME 86.9 fl (80.0-96.0); RED BLOOD COUNT 3.05 10^6/uL (4.30-6.10); WHITE BLOOD COUNT 26.4 10^3/uL (4.0-10.0)
[2022-08-10 06:50] LABS: PLATELET COUNT, AUTOMATED 579 10^3/uL (150-450)
[2022-08-10 07:01] LABS: ALBUMIN 2.1 G/DL (3.2-5.2); BILIRUBIN,TOTAL 1.1 MG/DL (0.3-1.2); CALCIUM LEVEL 8.6 MG/DL (8.3-10.6); CREATININE FOR GFR 1.87 MG/DL (0.70-1.30); GLOMERULAR FILTRATION RATE 37.7 (>42); POTASSIUM SERUM 4.5 MMOL/L (3.5-5.1); TOTAL PROTEIN 5.2 G/DL (5.7-8.2)
[2022-08-10] MEDS: SYMBICORT 160/4.5MCG INHALER 6GM INH SCH ×2 (07:40→19:46)
[2022-08-10 07:52] LABS: ATYPICAL LYMPH 2 % (0-5); LYMPHOCYTES 7 % (16-44); METAMYELOCYTES 2 % (0-0); MONOCYTES 14 % (0-5); MYELOCYTES 4 % (0-0); NEUTROPHILS 57 % (28-66); PLATELET ESTIMATE INCREASED (NORMAL)
[2022-08-10 07:53] LABS: ANISOCYTOSIS 1+
[2022-08-10] MEDS: SENNA 8.6 MG TAB (SENOKOT) PO SCH ×2 (09:23→20:02)
[2022-08-10] MEDS: OMEPRAZOLE 20MG CAP PO SCH (09:23)
[2022-08-10] MEDS: LORATADINE 10 MG TAB PO SCH (09:23)
[2022-08-10] MEDS: CARVedilol 6.25 MG TAB PO SCH ×2 (09:26→20:02)
[2022-08-10] MEDS: ASCORBIC ACID 500 MG TAB PO SCH (09:26)
[2022-08-10] MEDS: PARoxetine 20MG TABLET PO SCH (09:26)
[2022-08-10] MEDS: NS 1,000 ML IV SCH (09:27)
[2022-08-10 14:00] VITALS: BP 126/68
[2022-08-10 20:00] VITALS: BP 126/69
[2022-08-10] MEDS: ATORVASTATIN 20 MG TAB PO SCH (20:03)
[2022-08-10 23:15] VITALS: BP 117/64
[2022-08-11] MEDS: IPRATROPIUM 0.5MG/ALBUTEROL 2.5MG INH SOL UD 3ML (DUONEB) NEB SCH ×4 (01:24→19:32)
[2022-08-11] MEDS: PIPERACILLIN/TAZOBACTAM SOD 3.375 GM in D5W MINI-BAG PLUS 50 ML IV SCH ×3 (02:12→14:51)
[2022-08-11 06:00] VITALS: BP 119/69
[2022-08-11] MEDS: HEPARIN SOD (PORCINE) 5000UNITS/ML 1ML VIAL/SYRINGE SC SCH ×3 (06:20→20:35)
[2022-08-11 06:27] LABS: HEMATOCRIT 26.9 % (42.0-52.0); HEMOGLOBIN 8.6 g/dl (13.5-17.5); MEAN CORPUSCULAR HEMOGLOBIN 28.6 pg (27.0-33.0); MEAN CORPUSCULAR VOLUME 89.4 fl (80.0-96.0); PLATELET COUNT, AUTOMATED 582 10^3/uL (150-450); RED BLOOD COUNT 3.01 10^6/uL (4.30-6.10)
[2022-08-11 06:32] LABS: WHITE BLOOD COUNT 41.1 10^3/uL (4.0-10.0)
[2022-08-11 07:26] LABS: ANISOCYTOSIS 1+; ATYPICAL LYMPH 2 % (0-5); EOSINOPHILS 1 % (0-3); LYMPHOCYTES 7 % (16-44); METAMYELOCYTES 4 % (0-0); MONOCYTES 10 % (0-5); MYELOCYTES 8 % (0-0); NEUTROPHILS 60 % (28-66)
[2022-08-11 07:27] LABS: HYPOCHROMASIA 1+; POLYCHROMASIA 1+
[2022-08-11 07:29] LABS: PLATELET ESTIMATE INCREASED (NORMAL)
[2022-08-11] MEDS: SYMBICORT 160/4.5MCG INHALER 6GM INH SCH ×2 (08:07→19:32)
[2022-08-11 08:26] LABS: BASO % 0.1 % (0.0-1.0); EOS # 0.1 10^3/uL (0.0-0.5); EOS % 0.3 % (0.0-3.0); HEMATOCRIT 27.6 % (42.0-52.0); LYMPH # 1.9 10^3/uL (1.5-5.0); LYMPH % 4.4 % (24.0-44.0); MEAN CORPUSCULAR HEMOGLOBIN 28.8 pg (27.0-33.0); MEAN CORPUSCULAR HGB CONC 32.6 g/dl (32.0-36.5); MEAN CORPUSCULAR VOLUME 88.2 fl (80.0-96.0); NEUTROPHILS # 26.3 10^3/uL (1.5-8.5); NEUTROPHILS % 61.2 % (36.0-66.0); PLATELET COUNT, AUTOMATED 580 10^3/uL (150-450); RED BLOOD COUNT 3.13 10^6/uL (4.30-6.10)
[2022-08-11 08:27] LABS: C REACTIVE PROTEIN QUANTITATIV 10.4 MG/DL (<1.0)
[2022-08-11 08:30] LABS: ALBUMIN 2.3 G/DL (3.2-5.2); BILIRUBIN,TOTAL 0.5 MG/DL (0.3-1.2); CALCIUM LEVEL 8.9 MG/DL (8.3-10.6); CREATININE FOR GFR 1.47 MG/DL (0.70-1.30); GLOMERULAR FILTRATION RATE 49.7 (>42); TOTAL PROTEIN 5.1 G/DL (5.7-8.2)
[2022-08-11 08:36] LABS: MONO # 4.3 10^3/uL (0.0-0.8)
[2022-08-11] MEDS: CARVedilol 6.25 MG TAB PO SCH ×2 (08:43→20:36)
[2022-08-11] MEDS: ASCORBIC ACID 500 MG TAB PO SCH (08:43)
[2022-08-11] MEDS: SENNA 8.6 MG TAB (SENOKOT) PO SCH ×2 (08:43→20:36)
[2022-08-11] MEDS: LORATADINE 10 MG TAB PO SCH (08:43)
[2022-08-11] MEDS: OMEPRAZOLE 20MG CAP PO SCH (08:43)
[2022-08-11] MEDS: PARoxetine 20MG TABLET PO SCH (08:43)
[2022-08-11 08:44] LABS: WHITE BLOOD COUNT 42.9 10^3/uL (4.0-10.0)
[2022-08-11 12:48] LABS: APPEARANCE, URINE HAZY (CLEAR); BACTERIA, URINE AUTO NEGATIVE (NEGATIVE); BILIRUBIN, URINE AUTO NEGATIVE (NEGATIVE); BLOOD, URINE BLOOD NEGATIVE (NEGATIVE); COLOR, URINE YELLOW (YELLOW); GLUCOSE, URINE (UA) AUTO NEGATIVE (NEGATIVE); KETONE, URINE AUTO NEGATIVE (NEGATIVE); LEUKOCYTE ESTERASE, URINE AUTO NEGATIVE (NEGATIVE); NITRITE, URINE AUTO NEGATIVE (NEGATIVE); PROTEIN, URINE AUTO 1+ mg/dL (NEGATIVE); RBC, URINE AUTO 0 /HPF (0-3); SPECIFIC GRAVITY URINE AUTO 1.018 (1.002-1.035); SQUAMOUS EPITHELIAL CELL UR AU 0 /HPF (0-6); UROBILINOGEN, URINE AUTO 0.2 mg/dL (0.0-2.0); WBC, URINE AUTO 2 /HPF (0-3)
[2022-08-11 14:00] VITALS: BP 139/75
[2022-08-11] MEDS ORDERED: VANCOMYCIN HCL 1,000 MG, VIAL MATE ADAPTER 1 EACH in D5W 250 ML IV SCH (19:00)
[2022-08-11] MEDS: MEROPENEM INJ 1 GM in IV 1 EA IV SCH (20:35)
[2022-08-11] MEDS: ATORVASTATIN 20 MG TAB PO SCH (20:37)
[2022-08-11 21:00] VITALS: BP 141/79
[2022-08-11] MEDS ORDERED: VANCOMYCIN HCL 1,000 MG, VIAL MATE ADAPTER 1 EACH in D5W 250 ML IV ONE ×2 (22:00→23:00)
[2022-08-12] MEDS: IPRATROPIUM 0.5MG/ALBUTEROL 2.5MG INH SOL UD 3ML (DUONEB) NEB SCH ×4 (02:00→19:29)
[2022-08-12] MEDS: HEPARIN SOD (PORCINE) 5000UNITS/ML 1ML VIAL/SYRINGE SC SCH ×3 (05:08→21:23)
[2022-08-12] MEDS: MEROPENEM INJ 1 GM in IV 1 EA IV SCH ×3 (05:08→20:00)
[2022-08-12 06:00] VITALS: BP 146/79
[2022-08-12 06:38] LABS: HEMATOCRIT 27.2 % (42.0-52.0); HEMOGLOBIN 8.8 g/dl (13.5-17.5); MEAN CORPUSCULAR HEMOGLOBIN 28.6 pg (27.0-33.0); MEAN CORPUSCULAR HGB CONC 32.4 g/dl (32.0-36.5); MEAN CORPUSCULAR VOLUME 88.3 fl (80.0-96.0); PLATELET COUNT, AUTOMATED 531 10^3/uL (150-450); RED BLOOD COUNT 3.08 10^6/uL (4.30-6.10)
[2022-08-12 06:44] LABS: WHITE BLOOD COUNT 44.1 10^3/uL (4.0-10.0)
[2022-08-12 07:22] LABS: ANISOCYTOSIS 1+; EOSINOPHILS 1 % (0-3); LYMPHOCYTES 4 % (16-44); METAMYELOCYTES 2 % (0-0); MONOCYTES 18 % (0-5); MYELOCYTES 20 % (0-0); NEUTROPHILS 51 % (28-66); PLATELET ESTIMATE INCREASED (NORMAL)
[2022-08-12] MEDS: SYMBICORT 160/4.5MCG INHALER 6GM INH SCH ×2 (07:31→19:28)
[2022-08-12] MEDS: ASCORBIC ACID 500 MG TAB PO SCH (08:26)
[2022-08-12] MEDS: LORATADINE 10 MG TAB PO SCH (08:26)
[2022-08-12] MEDS: OMEPRAZOLE 20MG CAP PO SCH (08:26)
[2022-08-12] MEDS: PARoxetine 20MG TABLET PO SCH (08:27)
[2022-08-12] MEDS: CARVedilol 6.25 MG TAB PO SCH ×2 (08:27→20:02)
[2022-08-12] MEDS: SENNA 8.6 MG TAB (SENOKOT) PO SCH ×2 (08:30→20:00)
[2022-08-12] MEDS: TIOTROPIUM INHALER/CAPSULE (SPIRIVA) INH SCH (09:00)
[2022-08-12 13:10] LABS: BLOOD UREA NITROGEN 17 MG/DL (9-23); CALCIUM LEVEL 8.8 MG/DL (8.3-10.6); CARBON DIOXIDE LEVEL 29 MMOL/L (20-31); CHLORIDE LEVEL 105 MMOL/L (98-107); GLOMERULAR FILTRATION RATE > 60.0 (>42); GLUCOSE, FASTING 102 MG/DL (74-106); POTASSIUM SERUM 3.7 MMOL/L (3.5-5.1); SODIUM LEVEL 140 MMOL/L (136-145)
[2022-08-12 14:00] VITALS: BP 147/77
[2022-08-12 20:00] VITALS: BP 169/82
[2022-08-12] MEDS: ATORVASTATIN 20 MG TAB PO SCH (20:00)
[2022-08-12] MEDS ORDERED: VANCOMYCIN HCL 750 MG, VIAL MATE ADAPTER 1 EACH in D5W 250 ML IV SCH (21:00)
[2022-08-12] MEDS ORDERED: BUDESONIDE 180MCG INHALER (PULMICORT FLEXHALER) INH SCH (21:00)
[2022-08-12] MEDS ORDERED: zolPIDEM TARTRATE 5 MG TAB PO ONE (21:00)
[2022-08-12] MEDS: VANCOMYCIN HCL 750 MG, VIAL MATE ADAPTER 1 EACH in D5W 250 ML IV SCH (21:24)
[2022-08-12] MEDS ORDERED: VANCOMYCIN HCL 500 MG in D5W MINI-BAG PLUS 100 ML IV SCH (22:00)
[2022-08-12] MEDS: VANCOMYCIN HCL 500 MG in D5W MINI-BAG PLUS 100 ML IV SCH (22:34)
[2022-08-13] MEDS: IPRATROPIUM 0.5MG/ALBUTEROL 2.5MG INH SOL UD 3ML (DUONEB) NEB SCH ×4 (02:30→19:37)
[2022-08-13] MEDS: MEROPENEM INJ 1 GM in IV 1 EA IV SCH ×3 (05:04→19:48)
[2022-08-13] MEDS: HEPARIN SOD (PORCINE) 5000UNITS/ML 1ML VIAL/SYRINGE SC SCH ×3 (05:05→21:20)
[2022-08-13 05:25] VITALS: BP 153/87
[2022-08-13 06:13] LABS: HEMATOCRIT 26.8 % (42.0-52.0); HEMOGLOBIN 8.8 g/dl (13.5-17.5); MEAN CORPUSCULAR HEMOGLOBIN 28.8 pg (27.0-33.0); MEAN CORPUSCULAR HGB CONC 32.8 g/dl (32.0-36.5); MEAN CORPUSCULAR VOLUME 87.6 fl (80.0-96.0); RED BLOOD COUNT 3.06 10^6/uL (4.30-6.10)
[2022-08-13 06:17] LABS: PLATELET COUNT, AUTOMATED 419 10^3/uL (150-450); WHITE BLOOD COUNT 39.1 10^3/uL (4.0-10.0)
[2022-08-13 06:33] LABS: ALBUMIN 2.4 G/DL (3.2-5.2); ALKALINE PHOSPHATASE 389 U/L (46-116); ALT/SGPT 124 U/L (7.0-40); AST/SGOT 68 U/L (<34); BILIRUBIN,TOTAL 0.6 MG/DL (0.3-1.2); BLOOD UREA NITROGEN 13 MG/DL (9-23); CALCIUM LEVEL 8.8 MG/DL (8.3-10.6); CARBON DIOXIDE LEVEL 31 MMOL/L (20-31); CHLORIDE LEVEL 103 MMOL/L (98-107); CREATININE FOR GFR 1.01 MG/DL (0.70-1.30); GLOMERULAR FILTRATION RATE > 60.0 (>42); GLUCOSE, FASTING 101 MG/DL (74-106); POTASSIUM SERUM 3.4 MMOL/L (3.5-5.1); SODIUM LEVEL 140 MMOL/L (136-145); TOTAL PROTEIN 5.2 G/DL (5.7-8.2)
[2022-08-13 06:58] LABS: EOSINOPHILS 1 % (0-3); LYMPHOCYTES 9 % (16-44); METAMYELOCYTES 7 % (0-0); MONOCYTES 8 % (0-5); MYELOCYTES 18 % (0-0); NEUTROPHILS 43 % (28-66)
[2022-08-13 07:00] LABS: ANISOCYTOSIS 1+; PLATELET ESTIMATE NORMAL (NORMAL); POLYCHROMASIA 1+
[2022-08-13] MEDS: TIOTROPIUM INHALER/CAPSULE (SPIRIVA) INH SCH (07:29)
[2022-08-13] MEDS: SYMBICORT 160/4.5MCG INHALER 6GM INH SCH ×2 (07:30→19:37)
[2022-08-13] MEDS ORDERED: POTASSIUM CHLORIDE 10MEQ SR TABLET PO ONE (07:30)
[2022-08-13] MEDS: LORATADINE 10 MG TAB PO SCH (08:18)
[2022-08-13] MEDS: ASCORBIC ACID 500 MG TAB PO SCH (08:18)
[2022-08-13] MEDS: PARoxetine 20MG TABLET PO SCH (08:18)
[2022-08-13] MEDS: CARVedilol 6.25 MG TAB PO SCH ×2 (08:19→21:25)
[2022-08-13] MEDS: OMEPRAZOLE 20MG CAP PO SCH (08:19)
[2022-08-13] MEDS: SENNA 8.6 MG TAB (SENOKOT) PO SCH ×2 (08:19→21:23)
[2022-08-13] MEDS: VANCOMYCIN HCL 750 MG, VIAL MATE ADAPTER 1 EACH in D5W 250 ML IV SCH ×2 (09:39→21:25)
[2022-08-13] MEDS: SPIRONOLACTONE 25 MG TAB PO SCH (10:53)
[2022-08-13] MEDS: VANCOMYCIN HCL 500 MG in D5W MINI-BAG PLUS 100 ML IV SCH ×2 (10:53→22:52)
[2022-08-13 14:00] VITALS: BP 152/87
[2022-08-13] MEDS: guaiFENesin ER 600 MG TAB PO SCH ×2 (15:22→21:24)
[2022-08-13] MEDS ORDERED: FUROSEMIDE 20 MG TAB PO ONE (15:30)
[2022-08-13] MEDS ORDERED: ALPRAZolam 0.5 MG TAB PO ONE (21:00)
[2022-08-13] MEDS: LOSARTAN 50MG TABLET PO SCH (21:23)
[2022-08-13] MEDS: ATORVASTATIN 20 MG TAB PO SCH (21:24)
[2022-08-13 21:59] VITALS: BP 149/88
[2022-08-14] MEDS: IPRATROPIUM 0.5MG/ALBUTEROL 2.5MG INH SOL UD 3ML (DUONEB) NEB SCH ×4 (01:24→19:18)
[2022-08-14] MEDS: MEROPENEM INJ 1 GM in IV 1 EA IV SCH ×3 (04:06→21:04)
[2022-08-14] MEDS: HEPARIN SOD (PORCINE) 5000UNITS/ML 1ML VIAL/SYRINGE SC SCH (05:32)
[2022-08-14 06:39] VITALS: BP 152/89
[2022-08-14] MEDS: TIOTROPIUM INHALER/CAPSULE (SPIRIVA) INH SCH (07:18)
[2022-08-14] MEDS: SYMBICORT 160/4.5MCG INHALER 6GM INH SCH ×2 (07:18→19:18)
[2022-08-14 08:31] LABS: HEMATOCRIT 26.9 % (42.0-52.0); HEMOGLOBIN 8.7 g/dl (13.5-17.5); MEAN CORPUSCULAR HEMOGLOBIN 28.6 pg (27.0-33.0); MEAN CORPUSCULAR HGB CONC 32.3 g/dl (32.0-36.5); MEAN CORPUSCULAR VOLUME 88.5 fl (80.0-96.0); PLATELET COUNT, AUTOMATED 316 10^3/uL (150-450); RED BLOOD COUNT 3.04 10^6/uL (4.30-6.10)
[2022-08-14 08:36] LABS: WHITE BLOOD COUNT 36.4 10^3/uL (4.0-10.0)
[2022-08-14] MEDS: ASCORBIC ACID 500 MG TAB PO SCH (08:50)
[2022-08-14] MEDS: LORATADINE 10 MG TAB PO SCH (08:50)
[2022-08-14] MEDS: OMEPRAZOLE 20MG CAP PO SCH (08:50)
[2022-08-14] MEDS: guaiFENesin ER 600 MG TAB PO SCH ×2 (08:50→21:11)
[2022-08-14] MEDS: SPIRONOLACTONE 25 MG TAB PO SCH (08:50)
[2022-08-14] MEDS: PARoxetine 20MG TABLET PO SCH (08:51)
[2022-08-14] MEDS: CARVedilol 6.25 MG TAB PO SCH ×2 (08:51→21:13)
[2022-08-14] MEDS: SENNA 8.6 MG TAB (SENOKOT) PO SCH ×2 (08:51→21:14)
[2022-08-14 08:55] LABS: ALBUMIN 2.4 G/DL (3.2-5.2); ALKALINE PHOSPHATASE 415 U/L (46-116); ALT/SGPT 145 U/L (7.0-40); AST/SGOT 81 U/L (<34); BILIRUBIN,TOTAL 0.6 MG/DL (0.3-1.2); BLOOD UREA NITROGEN 12 MG/DL (9-23); CALCIUM LEVEL 8.8 MG/DL (8.3-10.6); CARBON DIOXIDE LEVEL 33 MMOL/L (20-31); CHLORIDE LEVEL 103 MMOL/L (98-107); CREATININE FOR GFR 0.97 MG/DL (0.70-1.30); GLOMERULAR FILTRATION RATE > 60.0 (>42); GLUCOSE, FASTING 100 MG/DL (74-106); POTASSIUM SERUM 3.8 MMOL/L (3.5-5.1); SODIUM LEVEL 140 MMOL/L (136-145); TOTAL PROTEIN 5.2 G/DL (5.7-8.2)
[2022-08-14 09:07] LABS: BASOPHILS 1 % (0-1); EOSINOPHILS 3 % (0-3); LYMPHOCYTES 5 % (16-44); METAMYELOCYTES 7 % (0-0); MONOCYTES 8 % (0-5); MYELOCYTES 9 % (0-0); NEUTROPHILS 58 % (28-66)
[2022-08-14] MEDS: VANCOMYCIN HCL 750 MG, VIAL MATE ADAPTER 1 EACH in D5W 250 ML IV SCH ×2 (09:08→21:36)
[2022-08-14 09:09] LABS: ANISOCYTOSIS 1+; PLATELET CLUMPS SMALL AMT; PLATELET ESTIMATE NORMAL (NORMAL); POIKILOCYTOSIS 1+; POLYCHROMASIA 1+
[2022-08-14] MEDS: VANCOMYCIN HCL 500 MG in D5W MINI-BAG PLUS 100 ML IV SCH ×2 (10:19→22:44)
[2022-08-14 14:00] VITALS: BP 137/81
[2022-08-14] MEDS: ENOXAPARIN 40MG/0.4ML SYRINGE (J1650 PER 10MG) SC SCH (14:45)
[2022-08-14 20:00] VITALS: BP 137/73
[2022-08-14] MEDS: LOSARTAN 50MG TABLET PO SCH (21:11)
[2022-08-14] MEDS: ATORVASTATIN 20 MG TAB PO SCH (21:13)
[2022-08-15] MEDS: IPRATROPIUM 0.5MG/ALBUTEROL 2.5MG INH SOL UD 3ML (DUONEB) NEB SCH ×4 (02:00→19:06)
[2022-08-15] MEDS: MEROPENEM INJ 1 GM in IV 1 EA IV SCH ×3 (04:21→21:02)
[2022-08-15 06:00] VITALS: BP 147/85
[2022-08-15 06:19] LABS: HEMATOCRIT 27.9 % (42.0-52.0); HEMOGLOBIN 8.8 g/dl (13.5-17.5); MEAN CORPUSCULAR HEMOGLOBIN 28.6 pg (27.0-33.0); MEAN CORPUSCULAR HGB CONC 31.5 g/dl (32.0-36.5); MEAN CORPUSCULAR VOLUME 90.6 fl (80.0-96.0); PLATELET COUNT, AUTOMATED 267 10^3/uL (150-450); RED BLOOD COUNT 3.08 10^6/uL (4.30-6.10); WHITE BLOOD COUNT 26.9 10^3/uL (4.0-10.0)
[2022-08-15 06:59] LABS: BLOOD UREA NITROGEN 13 MG/DL (9-23); CALCIUM LEVEL 8.9 MG/DL (8.3-10.6); CARBON DIOXIDE LEVEL 34 MMOL/L (20-31); CHLORIDE LEVEL 103 MMOL/L (98-107); CREATININE FOR GFR 0.95 MG/DL (0.70-1.30); GLOMERULAR FILTRATION RATE > 60.0 (>42); GLUCOSE, FASTING 103 MG/DL (74-106); POTASSIUM SERUM 3.9 MMOL/L (3.5-5.1); SODIUM LEVEL 140 MMOL/L (136-145)
[2022-08-15 07:23] LABS: ANISOCYTOSIS 1+; ATYPICAL LYMPH 1 % (0-5); BASOPHILS 1 % (0-1); EOSINOPHILS 5 % (0-3); LYMPHOCYTES 12 % (16-44); METAMYELOCYTES 1 % (0-0); MONOCYTES 11 % (0-5); MYELOCYTES 1 % (0-0); NEUTROPHILS 67 % (28-66); PLATELET ESTIMATE NORMAL (NORMAL); POIKILOCYTOSIS 1+; POLYCHROMASIA 1+
[2022-08-15] MEDS: TIOTROPIUM INHALER/CAPSULE (SPIRIVA) INH SCH (07:26)
[2022-08-15] MEDS: SYMBICORT 160/4.5MCG INHALER 6GM INH SCH ×2 (07:27→19:07)
[2022-08-15] MEDS: SENNA 8.6 MG TAB (SENOKOT) PO SCH ×2 (08:22→21:03)
[2022-08-15] MEDS: PARoxetine 20MG TABLET PO SCH (08:22)
[2022-08-15] MEDS: ASCORBIC ACID 500 MG TAB PO SCH (08:22)
[2022-08-15] MEDS: ENOXAPARIN 40MG/0.4ML SYRINGE (J1650 PER 10MG) SC SCH (08:22)
[2022-08-15] MEDS: guaiFENesin ER 600 MG TAB PO SCH ×2 (08:22→21:03)
[2022-08-15] MEDS: LORATADINE 10 MG TAB PO SCH (08:23)
[2022-08-15] MEDS: SPIRONOLACTONE 25 MG TAB PO SCH (08:23)
[2022-08-15] MEDS: OMEPRAZOLE 20MG CAP PO SCH (08:23)
[2022-08-15] MEDS: CARVedilol 6.25 MG TAB PO SCH ×2 (08:24→21:03)
[2022-08-15 08:37] LABS: VANCOMYCIN LEVEL TROUGH 19.7 UG/ML (10.0-20.0)
[2022-08-15 10:59] LABS: ALBUMIN 2.7 G/DL (3.2-5.2); BILIRUBIN,DIRECT 0.2 MG/DL (<0.4); BILIRUBIN,TOTAL 0.6 MG/DL (0.3-1.2); TOTAL PROTEIN 5.8 G/DL (5.7-8.2)
[2022-08-15] MEDS ORDERED: VANCOMYCIN HCL 1,000 MG, VIAL MATE ADAPTER 1 EACH in D5W 250 ML IV SCH (12:00)
[2022-08-15 14:55] VITALS: BP 141/77
[2022-08-15] MEDS: VANCOMYCIN HCL 1,000 MG, VIAL MATE ADAPTER 1 EACH in D5W 250 ML IV SCH (15:00)
[2022-08-15 18:00] VITALS: BP 117/56
[2022-08-15 20:00] VITALS: BP 139/85
[2022-08-15] MEDS: LOSARTAN 50MG TABLET PO SCH (21:03)
[2022-08-15] MEDS: ATORVASTATIN 20 MG TAB PO SCH (21:03)
[2022-08-16] MEDS: VANCOMYCIN HCL 1,000 MG, VIAL MATE ADAPTER 1 EACH in D5W 250 ML IV SCH (00:44)
[2022-08-16] MEDS: IPRATROPIUM 0.5MG/ALBUTEROL 2.5MG INH SOL UD 3ML (DUONEB) NEB SCH ×4 (02:00→19:21)
[2022-08-16] MEDS: MEROPENEM INJ 1 GM in IV 1 EA IV SCH (04:51)
[2022-08-16 06:00] VITALS: BP 138/83
[2022-08-16 06:21] LABS: HEMATOCRIT 27.4 % (42.0-52.0); HEMOGLOBIN 8.7 g/dl (13.5-17.5); MEAN CORPUSCULAR HEMOGLOBIN 28.7 pg (27.0-33.0); MEAN CORPUSCULAR HGB CONC 31.8 g/dl (32.0-36.5); MEAN CORPUSCULAR VOLUME 90.4 fl (80.0-96.0); PLATELET COUNT, AUTOMATED 235 10^3/uL (150-450); RED BLOOD COUNT 3.03 10^6/uL (4.30-6.10); WHITE BLOOD COUNT 20.5 10^3/uL (4.0-10.0)
[2022-08-16 06:40] LABS: ALBUMIN 2.5 G/DL (3.2-5.2); ALKALINE PHOSPHATASE 401 U/L (46-116); ALT/SGPT 106 U/L (7.0-40); AST/SGOT 44 U/L (<34); BILIRUBIN,TOTAL 0.5 MG/DL (0.3-1.2); BLOOD UREA NITROGEN 14 MG/DL (9-23); CALCIUM LEVEL 8.5 MG/DL (8.3-10.6); CARBON DIOXIDE LEVEL 32 MMOL/L (20-31); CHLORIDE LEVEL 102 MMOL/L (98-107); CREATININE FOR GFR 0.92 MG/DL (0.70-1.30); GLOMERULAR FILTRATION RATE > 60.0 (>42); GLUCOSE, FASTING 108 MG/DL (74-106); POTASSIUM SERUM 3.8 MMOL/L (3.5-5.1); SODIUM LEVEL 140 MMOL/L (136-145); TOTAL PROTEIN 5.2 G/DL (5.7-8.2)
[2022-08-16 06:50] LABS: EOSINOPHILS 5 % (0-3); LYMPHOCYTES 11 % (16-44); METAMYELOCYTES 2 % (0-0); MONOCYTES 17 % (0-5); MYELOCYTES 8 % (0-0); NEUTROPHILS 55 % (28-66)
[2022-08-16 06:51] LABS: ANISOCYTOSIS 2+; PLATELET ESTIMATE NORMAL (NORMAL); POIKILOCYTOSIS 1+; POLYCHROMASIA 1+
[2022-08-16] MEDS: SYMBICORT 160/4.5MCG INHALER 6GM INH SCH ×2 (07:14→19:21)
[2022-08-16] MEDS: TIOTROPIUM INHALER/CAPSULE (SPIRIVA) INH SCH (07:14)
[2022-08-16] MEDS: PARoxetine 20MG TABLET PO SCH (08:33)
[2022-08-16] MEDS: ASCORBIC ACID 500 MG TAB PO SCH (08:33)
[2022-08-16] MEDS: LORATADINE 10 MG TAB PO SCH (08:33)
[2022-08-16] MEDS: guaiFENesin ER 600 MG TAB PO SCH ×2 (08:33→20:36)
[2022-08-16] MEDS: SENNA 8.6 MG TAB (SENOKOT) PO SCH ×2 (08:34→20:36)
[2022-08-16] MEDS: OMEPRAZOLE 20MG CAP PO SCH (08:34)
[2022-08-16] MEDS: CARVedilol 6.25 MG TAB PO SCH ×2 (08:34→20:36)
[2022-08-16] MEDS: SPIRONOLACTONE 25 MG TAB PO SCH (08:34)
[2022-08-16] MEDS: ENOXAPARIN 40MG/0.4ML SYRINGE (J1650 PER 10MG) SC SCH (08:35)
[2022-08-16] MEDS: LevoFLOXacin 750 MG TABLET PO SCH (11:11)
[2022-08-16] MEDS: metroNIDAZOLE (FLAGYL) 500MG TABLET PO SCH ×3 (11:11→20:36)
[2022-08-16] MEDS ORDERED: LIDOCAINE 1% MDV 20ML VIAL As Ordered ONE (13:39)
[2022-08-16 14:42] VITALS: BP 141/81
[2022-08-16] MEDS: oxyCODONE 5MG TAB PO PRN ×2 (15:03→21:24)
[2022-08-16] MEDS: LOSARTAN 50MG TABLET PO SCH (20:35)
[2022-08-16] MEDS: ATORVASTATIN 20 MG TAB PO SCH (20:36)
[2022-08-16 21:40] VITALS: BP 140/80
[2022-08-17] MEDS: IPRATROPIUM 0.5MG/ALBUTEROL 2.5MG INH SOL UD 3ML (DUONEB) NEB SCH ×3 (01:24→13:21)
[2022-08-17 05:10] VITALS: BP 135/73
[2022-08-17] MEDS: LevoFLOXacin 750 MG TABLET PO SCH (05:40)
[2022-08-17 06:28] LABS: HEMATOCRIT 26.9 % (42.0-52.0); HEMOGLOBIN 8.7 g/dl (13.5-17.5); MEAN CORPUSCULAR HEMOGLOBIN 28.9 pg (27.0-33.0); MEAN CORPUSCULAR HGB CONC 32.3 g/dl (32.0-36.5); MEAN CORPUSCULAR VOLUME 89.4 fl (80.0-96.0); PLATELET COUNT, AUTOMATED 217 10^3/uL (150-450); RED BLOOD COUNT 3.01 10^6/uL (4.30-6.10); WHITE BLOOD COUNT 15.9 10^3/uL (4.0-10.0)
[2022-08-17 06:52] LABS: ALBUMIN 2.5 G/DL (3.2-5.2); ALKALINE PHOSPHATASE 373 U/L (46-116); ALT/SGPT 90 U/L (7.0-40); AST/SGOT 35 U/L (<34); BILIRUBIN,TOTAL 0.6 MG/DL (0.3-1.2); BLOOD UREA NITROGEN 14 MG/DL (9-23); CALCIUM LEVEL 9.2 MG/DL (8.3-10.6); CARBON DIOXIDE LEVEL 30 MMOL/L (20-31); CHLORIDE LEVEL 102 MMOL/L (98-107); CREATININE FOR GFR 1.01 MG/DL (0.70-1.30); GLOMERULAR FILTRATION RATE > 60.0 (>42); GLUCOSE, FASTING 103 MG/DL (74-106); POTASSIUM SERUM 3.9 MMOL/L (3.5-5.1); SODIUM LEVEL 140 MMOL/L (136-145); TOTAL PROTEIN 5.4 G/DL (5.7-8.2)
[2022-08-17 07:04] LABS: ANISOCYTOSIS 1+; ATYPICAL LYMPH 1 % (0-5); EOSINOPHILS 2 % (0-3); LYMPHOCYTES 9 % (16-44); MONOCYTES 8 % (0-5); MYELOCYTES 2 % (0-0); NEUTROPHILS 76 % (28-66); PLATELET ESTIMATE NORMAL (NORMAL); POIKILOCYTOSIS 1+; POLYCHROMASIA 1+
[2022-08-17] MEDS: metroNIDAZOLE (FLAGYL) 500MG TABLET PO SCH (08:43)
[2022-08-17] MEDS: ENOXAPARIN 40MG/0.4ML SYRINGE (J1650 PER 10MG) SC SCH (08:43)
[2022-08-17] MEDS: SENNA 8.6 MG TAB (SENOKOT) PO SCH (08:43)
[2022-08-17] MEDS: PARoxetine 20MG TABLET PO SCH (08:43)
[2022-08-17] MEDS: OMEPRAZOLE 20MG CAP PO SCH (08:44)
[2022-08-17] MEDS: guaiFENesin ER 600 MG TAB PO SCH (08:45)
[2022-08-17] MEDS: LORATADINE 10 MG TAB PO SCH (08:45)
[2022-08-17] MEDS: ASCORBIC ACID 500 MG TAB PO SCH (08:45)
[2022-08-17] MEDS: SPIRONOLACTONE 25 MG TAB PO SCH (08:45)
[2022-08-17 08:46] VITALS: BP 133/83
[2022-08-17] MEDS: CARVedilol 6.25 MG TAB PO SCH (08:46)
[2022-08-17] MEDS: SYMBICORT 160/4.5MCG INHALER 6GM INH SCH (09:03)
[2022-08-17] MEDS: TIOTROPIUM INHALER/CAPSULE (SPIRIVA) INH SCH (09:03)
[2022-08-17] MEDS ORDERED: OXYC-517 PO ×3 (09:24→10:14)
[2022-08-17] MEDS ORDERED: METR-265 PO (09:24)
[2022-08-17] MEDS ORDERED: MIRA1POW3 PO (09:24)
[2022-08-17] MEDS ORDERED: LEVO1TAB40 PO (09:24)
[2022-08-17] MEDS ORDERED: BD P0.9I2 IV (13:04)
== END 2022-08-17 14:07 | disposition home health service (06) | DRG 872 ==
LOC: M ED 11:48 → EDBD 11:48 → M ED INP 15:30 → M MSPAV 20:37
PROVIDERS: ADMIT Internal Medicine; ATTEND Internal Medicine
PROC: 0F9430Z Drainage of Gallbladder with Drainage Device, Percutaneous Approach (ICD-10-PCS; principal; 2022-08-16 15:30)
DX: A41.9 Sepsis, unspecified organism (principal); C25.9 Malignant neoplasm of pancreas, unspecified; E87.1 Hypo-osmolality and hyponatremia; N17.9 Acute kidney failure, unspecified; K81.0 Acute cholecystitis; I50.32 Chronic diastolic (congestive) heart failure; I13.0 Hypertensive heart and chronic kidney disease with heart failure and stage 1 through stage 4 chronic kidney disease, or unspecified chronic kidney disease; J96.11 Chronic respiratory failure with hypoxia; F41.9 Anxiety disorder, unspecified; J44.9 Chronic obstructive pulmonary disease, unspecified; E78.5 Hyperlipidemia, unspecified; R25.1 Tremor, unspecified; Z66 Do not resuscitate; K59.00 Constipation, unspecified; R74.01 Elevation of levels of liver transaminase levels; N18.30 Chronic kidney disease, stage 3 unspecified; K21.9 Gastro-esophageal reflux disease without esophagitis; F32.A Depression, unspecified; Z79.899 Other long term (current) drug therapy; Z88.8 Allergy status to other drugs, medicaments and biological substances; Z20.822 Contact with and (suspected) exposure to COVID-19; Z99.81 Dependence on supplemental oxygen; Z87.891 Personal history of nicotine dependence

== ENCOUNTER → 2022-09-23 | Outpatient (CLI) | payer MEDICARE, OTHER ==
[~2022-09-23] MED LIST changes: +BD P0.9I2 IV; +FOLI0.4T5 PO; -K-TA10TA2 PO; +LACT20EL PO; +LEVO1TAB40 PO; +METR-265 PO; +MIRA1POW3 PO; +MULT-6 PO; +OXYC-517 PO; +POTA-165 PO; +PRED10TA2; +VENTAER INH
== END ==
LOC: M ONCR 11:41
PROVIDERS: ATTEND General Practice
DX: C25.0 Malignant neoplasm of head of pancreas (principal); I27.9 Pulmonary heart disease, unspecified; K59.00 Constipation, unspecified; R06.9 Unspecified abnormalities of breathing; Z71.2 Person consulting for explanation of examination or test findings; Z79.899 Other long term (current) drug therapy; Z87.891 Personal history of nicotine dependence; Z88.8 Allergy status to other drugs, medicaments and biological substances; Z92.3 Personal history of irradiation; Z96.89 Presence of other specified functional implants

== ENCOUNTER 2022-10-05 22:40 | Inpatient (IN) | payer OTHER ==
[~2022-10-05] VITALS: Ht 177.8 cm; Wt 106.7 kg
[~2022-10-05 22:40] MED LIST changes: -CARV12.5 PO; -COMBAER6 INH; -FLUT1BLS2 INH; -IPRA6SP; -LIDO1CRE42 TOP; +LIDO30CR18 TOP; -NALO4SPR NS; -ONDA-195 PO; -PRED5TA PO; -REFR0.5D8 OU; -SENN8.6T58 PO; -VITMTA PO
[2022-10-05] MEDS: IPRATROPIUM 0.5MG/ALBUTEROL 2.5MG INH SOL UD 3ML (DUONEB) NEB PRN ×2 (22:51→22:52)
[2022-10-05 23:21] LABS: HEMATOCRIT 32.1 % (42.0-52.0); HEMOGLOBIN 10.3 g/dl (13.5-17.5); MEAN CORPUSCULAR HEMOGLOBIN 28.7 pg (27.0-33.0); MEAN CORPUSCULAR HGB CONC 32.1 g/dl (32.0-36.5); MEAN CORPUSCULAR VOLUME 89.4 fl (80.0-96.0); PLATELET COUNT, AUTOMATED 487 10^3/uL (150-450); RED BLOOD COUNT 3.59 10^6/uL (4.30-6.10); WHITE BLOOD COUNT 13.6 10^3/uL (4.0-10.0)
[2022-10-05 23:59] LABS: INR 0.89; PROTHROMBIN TIME 12.2 SECONDS (12.5-14.5)
[2022-10-06 00:44] LABS: CK-MB VALUE MASS < 1.0 NG/ML (<3.6)
[2022-10-06 00:46] LABS: ALBUMIN 2.7 G/DL (3.2-5.2); ALKALINE PHOSPHATASE 347 U/L (46-116); ALT/SGPT 174 U/L (7.0-40); AST/SGOT 68 U/L (<34); BILIRUBIN,DIRECT 0.4 MG/DL (<0.4); BILIRUBIN,TOTAL 1.1 MG/DL (0.3-1.2); BLOOD UREA NITROGEN 24 MG/DL (9-23); CALCIUM LEVEL 8.5 MG/DL (8.3-10.6); CARBON DIOXIDE LEVEL 31 MMOL/L (20-31); CHLORIDE LEVEL 100 MMOL/L (98-107); CPK CREATINE PHOSPHOKINASE < 15 U/L (46-171); CREATININE FOR GFR 1.18 MG/DL (0.70-1.30); GLOMERULAR FILTRATION RATE > 60.0 (>42); GLUCOSE, FASTING 130 MG/DL (74-106); POTASSIUM SERUM 4.3 MMOL/L (3.5-5.1); SODIUM LEVEL 135 MMOL/L (136-145); TOTAL PROTEIN 5.6 G/DL (5.7-8.2)
[2022-10-06 00:48] LABS: THYROID STIMULATING HORMONE 1.156 uIU/ML (0.55-4.78)
[2022-10-06 00:52] LABS: EOSINOPHILS 1 % (0-3); LYMPHOCYTES 7 % (16-44); MONOCYTES 7 % (0-5); MYELOCYTES 8 % (0-0); NEUTROPHILS 76 % (28-66)
[2022-10-06 00:53] LABS: ANISOCYTOSIS 1+; PLATELET ESTIMATE NORMAL (NORMAL)
[2022-10-06] MEDS ORDERED: cefTRIAXone SOD 1 GM in D5W MINI-BAG PLUS 50 ML IV ONE (02:15)
[2022-10-06] MEDS ORDERED: AZITHROMYCIN 250MG TABLET PO ONE (02:15)
[2022-10-06] MEDS ORDERED: MED REC IN PROGRESS XX SCH (02:20)
[2022-10-06] MEDS ORDERED: HEPARIN SOD (PORCINE) 5000UNITS/ML 1ML VIAL/SYRINGE SC SCH (03:25)
[2022-10-06 03:30] LABS: PROCALCITONIN 0.25 ng/ml
[2022-10-06] MEDS ORDERED: IPRATROPIUM 0.5MG/ALBUTEROL 2.5MG INH SOL UD 3ML (DUONEB) NEB PRN (03:30)
[2022-10-06] MEDS ORDERED: methylPREDNISolone 40MG 1ML VIAL IV SCH (05:00)
[2022-10-06] MEDS: IPRATROPIUM 0.5MG/ALBUTEROL 2.5MG INH SOL UD 3ML (DUONEB) NEB PRN (05:08)
[2022-10-06] MEDS ORDERED: LACT20EL PO (05:44)
[2022-10-06] MEDS ORDERED: LIDO30CR18 TOP (05:44)
[2022-10-06] MEDS ORDERED: CARV12.5 PO (05:44)
[2022-10-06] MEDS ORDERED: FLUT1BLS2 INH (05:44)
[2022-10-06] MEDS ORDERED: SPIR1CAP INH (05:47)
[2022-10-06] MEDS ORDERED: VITMTA PO (05:47)
[2022-10-06] MEDS ORDERED: OXYC-517 PO (05:47)
[2022-10-06] MEDS ORDERED: PRED5TA PO (05:47)
[2022-10-06] MEDS ORDERED: REFR0.5D8 OU (05:50)
[2022-10-06] MEDS ORDERED: COMBAER6 INH (05:50)
[2022-10-06] MEDS ORDERED: ONDA-195 PO (05:50)
[2022-10-06] MEDS ORDERED: ALBU2.5V10 INH (05:50)
[2022-10-06] MEDS ORDERED: SENN8.6T58 PO (05:50)
[2022-10-06] MEDS ORDERED: NALO4SPR NS (05:50)
[2022-10-06] MEDS ORDERED: IPRA6SP (05:50)
[2022-10-06] MEDS ORDERED: DOXYCYCLINE HYCLATE 100 MG in D5W MINI-BAG PLUS 100 ML IV SCH (06:00)
[2022-10-06 06:42] LABS: BASO # 0.1 10^3/uL (0.0-0.2); BASO % 0.4 % (0.0-1.0); EOS % 0.1 % (0.0-3.0); HEMATOCRIT 27.8 % (42.0-52.0); LYMPH # 1.3 10^3/uL (1.5-5.0); LYMPH % 8.4 % (24.0-44.0); MEAN CORPUSCULAR HEMOGLOBIN 29.1 pg (27.0-33.0); MEAN CORPUSCULAR HGB CONC 32.4 g/dl (32.0-36.5); MONO # 0.3 10^3/uL (0.0-0.8); MONO % 2.1 % (2.0-8.0); NEUTROPHILS # 12.6 10^3/uL (1.5-8.5); NEUTROPHILS % 84.4 % (36.0-66.0); PLATELET COUNT, AUTOMATED 394 10^3/uL (150-450); RED BLOOD COUNT 3.09 10^6/uL (4.30-6.10); WHITE BLOOD COUNT 14.9 10^3/uL (4.0-10.0)
[2022-10-06] MEDS ORDERED: PRED10TA2 PO (06:53)
[2022-10-06] MEDS ORDERED: HOME MED LIST COMPLETE! XX SCH (06:55)
[2022-10-06 06:57] LABS: ALBUMIN 2.6 G/DL (3.2-5.2); BILIRUBIN,TOTAL 0.9 MG/DL (0.3-1.2); CREATININE FOR GFR 1.31 MG/DL (0.70-1.30); GLOMERULAR FILTRATION RATE 56.8 (>42); MAGNESIUM LEVEL 1.5 MG/DL (1.8-2.4); POTASSIUM SERUM 4.8 MMOL/L (3.5-5.1); TOTAL PROTEIN 5.6 G/DL (5.7-8.2)
[2022-10-06] MEDS ORDERED: IPRATROPIUM 0.5MG/ALBUTEROL 2.5MG INH SOL UD 3ML (DUONEB) NEB SCH (08:00)
[2022-10-06] MEDS: SYMBICORT 160/4.5MCG INHALER 6GM INH SCH ×2 (08:43→19:23)
[2022-10-06] MEDS: SPIRONOLACTONE 25 MG TAB PO SCH (09:00)
[2022-10-06] MEDS: LACTULOSE 20GM/30ML SYRUP UDC PO SCH ×3 (09:00→21:00)
[2022-10-06] MEDS ORDERED: BISACODYL 10MG SUPP PR PRN (11:00)
[2022-10-06] MEDS: TIOTROPIUM INHALER/CAPSULE (SPIRIVA) INH SCH (11:59)
[2022-10-06 12:00] VITALS: O2SAT 94
[2022-10-06] MEDS: IPRATROPIUM 0.5MG/ALBUTEROL 2.5MG INH SOL UD 3ML (DUONEB) NEB SCH ×4 (12:00→23:27)
[2022-10-06 12:13] LABS: ABG BASE EXCESS 5.4 (-2.0-2.0); ABG HCO3 30.3 MMOL/L (22.0-26.0); ABG O2 SATURATION 93.9 % (95.0-99.0); ABG PARTIAL PRESSURE CO2 45.7 mmHg (35.0-45.0); ABG PARTIAL PRESSURE O2 66.8 mmHg (75.0-100.0); ABG STANDARD HCO3 29.3 MMOL/L. (22.0-26.0); ABG TOTAL CO2 31.7 MMOL/L (23.0-31.0); ABG pH (ARTERIAL) 7.439 UNITS (7.350-7.450)
[2022-10-06] MEDS: SENOKOT S TAB PO SCH ×2 (13:09→21:09)
[2022-10-06] MEDS: PARoxetine 20MG TABLET PO SCH (13:10)
[2022-10-06] MEDS: ASCORBIC ACID 500 MG TAB PO SCH (13:10)
[2022-10-06] MEDS: CARVedilol 6.25 MG TAB PO SCH ×2 (13:10→21:09)
[2022-10-06] MEDS: OMEPRAZOLE 20MG CAP PO SCH (13:10)
[2022-10-06] MEDS: methylPREDNISolone 40MG 1ML VIAL IV SCH ×2 (13:11→21:08)
[2022-10-06] MEDS: HEPARIN SOD (PORCINE) 5000UNITS/ML 1ML VIAL/SYRINGE SC SCH ×2 (13:11→21:08)
[2022-10-06 14:15] VITALS: BP 117/69; TEMP 98.3; O2SAT 93
[2022-10-06 20:00] VITALS: BP 119/75; TEMP 97.4; O2SAT 97
[2022-10-06] MEDS ORDERED: DOXYCYCLINE HYCLATE 100MG TABLET PO SCH (21:00)
[2022-10-06] MEDS: ATORVASTATIN 20 MG TAB PO SCH (21:10)
[2022-10-06] MEDS: cefTRIAXone SOD 1 GM in D5W MINI-BAG PLUS 50 ML IV SCH (23:36)
[2022-10-07] VITALS (19 sets, daily range): BP systolic 119–135; BP diastolic 65–76; TEMP 96.8–98.1; O2SAT 91–97
[2022-10-07] MEDS: IPRATROPIUM 0.5MG/ALBUTEROL 2.5MG INH SOL UD 3ML (DUONEB) NEB SCH ×6 (04:39→23:44)
[2022-10-07] MEDS: HEPARIN SOD (PORCINE) 5000UNITS/ML 1ML VIAL/SYRINGE SC SCH ×3 (05:44→20:39)
[2022-10-07] MEDS: methylPREDNISolone 40MG 1ML VIAL IV SCH ×3 (05:44→20:39)
[2022-10-07 06:14] LABS: HEMATOCRIT 29.4 % (42.0-52.0); HEMOGLOBIN 9.3 g/dl (13.5-17.5); MEAN CORPUSCULAR HEMOGLOBIN 28.7 pg (27.0-33.0); MEAN CORPUSCULAR HGB CONC 31.6 g/dl (32.0-36.5); MEAN CORPUSCULAR VOLUME 90.7 fl (80.0-96.0); PLATELET COUNT, AUTOMATED 366 10^3/uL (150-450); RED BLOOD COUNT 3.24 10^6/uL (4.30-6.10); WHITE BLOOD COUNT 20.9 10^3/uL (4.0-10.0)
[2022-10-07] MEDS ORDERED: VANCOMYCIN HCL 1,000 MG, VIAL MATE ADAPTER 1 EACH in D5W 250 ML IV SCH (06:15)
[2022-10-07] MEDS ORDERED: VANCOMYCIN HCL 1,000 MG, VIAL MATE ADAPTER 1 EACH in D5W 250 ML IV ONE ×2 (06:30→07:30)
[2022-10-07 06:35] LABS: BLOOD UREA NITROGEN 32 MG/DL (9-23); CALCIUM LEVEL 10.4 MG/DL (8.3-10.6); CARBON DIOXIDE LEVEL 34 MMOL/L (20-31); CHLORIDE LEVEL 98 MMOL/L (98-107); GLOMERULAR FILTRATION RATE > 60.0 (>42); GLUCOSE, FASTING 128 MG/DL (74-106); POTASSIUM SERUM 4.6 MMOL/L (3.5-5.1); SODIUM LEVEL 137 MMOL/L (136-145)
[2022-10-07] MEDS: SYMBICORT 160/4.5MCG INHALER 6GM INH SCH ×2 (07:22→19:35)
[2022-10-07] MEDS: TIOTROPIUM INHALER/CAPSULE (SPIRIVA) INH SCH (07:22)
[2022-10-07 07:48] LABS: ATYPICAL LYMPH 2 % (0-5); LYMPHOCYTES 3 % (16-44); MONOCYTES 5 % (0-5); NEUTROPHILS 89 % (28-66); PLATELET ESTIMATE NORMAL (NORMAL)
[2022-10-07 07:49] LABS: POLYCHROMASIA 1+
[2022-10-07] MEDS: PARoxetine 20MG TABLET PO SCH (08:19)
[2022-10-07] MEDS: SENOKOT S TAB PO SCH ×2 (08:20→20:38)
[2022-10-07] MEDS: OMEPRAZOLE 20MG CAP PO SCH (08:20)
[2022-10-07] MEDS: CARVedilol 6.25 MG TAB PO SCH ×2 (08:20→20:39)
[2022-10-07] MEDS: ASCORBIC ACID 500 MG TAB PO SCH (08:20)
[2022-10-07] MEDS: SPIRONOLACTONE 25 MG TAB PO SCH (08:20)
[2022-10-07] MEDS: LACTULOSE 20GM/30ML SYRUP UDC PO SCH ×3 (08:20→20:39)
[2022-10-07] MEDS: VANCOMYCIN HCL 1,000 MG, VIAL MATE ADAPTER 1 EACH in D5W 250 ML IV SCH (14:54)
[2022-10-07] MEDS: ATORVASTATIN 20 MG TAB PO SCH (20:39)
[2022-10-07] MEDS: cefTRIAXone SOD 1 GM in D5W MINI-BAG PLUS 50 ML IV SCH (22:42)
[2022-10-08] VITALS (12 sets, daily range): BP systolic 125–141; BP diastolic 66–88; TEMP 97.5–98.8; O2SAT 93–98
[2022-10-08] MEDS: VANCOMYCIN HCL 1,000 MG, VIAL MATE ADAPTER 1 EACH in D5W 250 ML IV SCH (03:25)
[2022-10-08] MEDS: IPRATROPIUM 0.5MG/ALBUTEROL 2.5MG INH SOL UD 3ML (DUONEB) NEB SCH ×6 (04:00→23:12)
[2022-10-08] MEDS: HEPARIN SOD (PORCINE) 5000UNITS/ML 1ML VIAL/SYRINGE SC SCH ×3 (05:02→21:25)
[2022-10-08] MEDS: methylPREDNISolone 40MG 1ML VIAL IV SCH ×2 (05:02→16:04)
[2022-10-08 05:09] LABS: HEMATOCRIT 28.5 % (42.0-52.0); HEMOGLOBIN 8.9 g/dl (13.5-17.5); MEAN CORPUSCULAR HEMOGLOBIN 28.7 pg (27.0-33.0); MEAN CORPUSCULAR HGB CONC 31.2 g/dl (32.0-36.5); MEAN CORPUSCULAR VOLUME 91.9 fl (80.0-96.0); PLATELET COUNT, AUTOMATED 326 10^3/uL (150-450); WHITE BLOOD COUNT 26.1 10^3/uL (4.0-10.0)
[2022-10-08 05:28] LABS: LYMPHOCYTES 9 % (16-44); METAMYELOCYTES 2 % (0-0); MYELOCYTES 1 % (0-0); NEUTROPHILS 87 % (28-66)
[2022-10-08 05:29] LABS: ANISOCYTOSIS 1+; HYPOCHROMASIA 1+; PLATELET CLUMPS SMALL AMT; PLATELET ESTIMATE NORMAL (NORMAL)
[2022-10-08 05:40] LABS: ALBUMIN 2.4 G/DL (3.2-5.2); ALKALINE PHOSPHATASE 289 U/L (46-116); ALT/SGPT 122 U/L (7.0-40); AST/SGOT 26 U/L (<34); BILIRUBIN,DIRECT 0.1 MG/DL (<0.4); BILIRUBIN,TOTAL 0.4 MG/DL (0.3-1.2); BLOOD UREA NITROGEN 32 MG/DL (9-23); CALCIUM LEVEL 9.9 MG/DL (8.3-10.6); CARBON DIOXIDE LEVEL 34 MMOL/L (20-31); CHLORIDE LEVEL 101 MMOL/L (98-107); CREATININE FOR GFR 0.97 MG/DL (0.70-1.30); GLOMERULAR FILTRATION RATE > 60.0 (>42); GLUCOSE, FASTING 164 MG/DL (74-106); POTASSIUM SERUM 4.7 MMOL/L (3.5-5.1); SODIUM LEVEL 139 MMOL/L (136-145); TOTAL PROTEIN 5.3 G/DL (5.7-8.2)
[2022-10-08] MEDS: LACTULOSE 20GM/30ML SYRUP UDC PO SCH ×4 (08:40→21:24)
[2022-10-08] MEDS: OMEPRAZOLE 20MG CAP PO SCH (08:41)
[2022-10-08] MEDS: CARVedilol 6.25 MG TAB PO SCH ×2 (08:41→21:30)
[2022-10-08] MEDS: SPIRONOLACTONE 25 MG TAB PO SCH (08:41)
[2022-10-08] MEDS: SENOKOT S TAB PO SCH ×2 (08:41→21:30)
[2022-10-08] MEDS: PARoxetine 20MG TABLET PO SCH (08:41)
[2022-10-08] MEDS: ASCORBIC ACID 500 MG TAB PO SCH (08:41)
[2022-10-08] MEDS: TIOTROPIUM INHALER/CAPSULE (SPIRIVA) INH SCH (08:46)
[2022-10-08] MEDS: SYMBICORT 160/4.5MCG INHALER 6GM INH SCH ×2 (08:46→20:03)
[2022-10-08] MEDS: SODIUM CHLORIDE HYPERTONIC 3% 4ML NEB SOL INH SCH ×4 (11:19→23:12)
[2022-10-08] MEDS: ATORVASTATIN 20 MG TAB PO SCH (21:25)
[2022-10-08] MEDS: cefTRIAXone SOD 1 GM in D5W MINI-BAG PLUS 50 ML IV SCH (23:50)
[2022-10-09] MEDS: SODIUM CHLORIDE HYPERTONIC 3% 4ML NEB SOL INH SCH ×3 (04:44→11:44)
[2022-10-09] MEDS: IPRATROPIUM 0.5MG/ALBUTEROL 2.5MG INH SOL UD 3ML (DUONEB) NEB SCH ×3 (04:45→11:44)
[2022-10-09] MEDS: HEPARIN SOD (PORCINE) 5000UNITS/ML 1ML VIAL/SYRINGE SC SCH (05:27)
[2022-10-09] MEDS: methylPREDNISolone 40MG 1ML VIAL IV SCH (05:27)
[2022-10-09 06:48] LABS: HEMATOCRIT 30.6 % (42.0-52.0); HEMOGLOBIN 9.3 g/dl (13.5-17.5); MEAN CORPUSCULAR HEMOGLOBIN 28.3 pg (27.0-33.0); MEAN CORPUSCULAR HGB CONC 30.4 g/dl (32.0-36.5); PLATELET COUNT, AUTOMATED 339 10^3/uL (150-450); RED BLOOD COUNT 3.29 10^6/uL (4.30-6.10); WHITE BLOOD COUNT 25.4 10^3/uL (4.0-10.0)
[2022-10-09 07:06] LABS: BLOOD UREA NITROGEN 29 MG/DL (9-23); CALCIUM LEVEL 8.7 MG/DL (8.3-10.6); CARBON DIOXIDE LEVEL 33 MMOL/L (20-31); CHLORIDE LEVEL 102 MMOL/L (98-107); CREATININE FOR GFR 0.96 MG/DL (0.70-1.30); GLOMERULAR FILTRATION RATE > 60.0 (>42); GLUCOSE, FASTING 102 MG/DL (74-106); POTASSIUM SERUM 4.4 MMOL/L (3.5-5.1); SODIUM LEVEL 138 MMOL/L (136-145)
[2022-10-09 07:20] LABS: ANISOCYTOSIS 1+; HYPOCHROMASIA 1+; LYMPHOCYTES 5 % (16-44); METAMYELOCYTES 1 % (0-0); MONOCYTES 5 % (0-5); MYELOCYTES 9 % (0-0); NEUTROPHILS 78 % (28-66); PLATELET ESTIMATE NORMAL (NORMAL)
[2022-10-09 08:10] LABS: ALBUMIN 2.5 G/DL (3.2-5.2); ALKALINE PHOSPHATASE 288 U/L (46-116); ALT/SGPT 98 U/L (7.0-40); AST/SGOT 20 U/L (<34); BILIRUBIN,DIRECT 0.1 MG/DL (<0.4); BILIRUBIN,TOTAL 0.4 MG/DL (0.3-1.2); TOTAL PROTEIN 5.4 G/DL (5.7-8.2)
[2022-10-09] MEDS: SYMBICORT 160/4.5MCG INHALER 6GM INH SCH (08:15)
[2022-10-09] MEDS: TIOTROPIUM INHALER/CAPSULE (SPIRIVA) INH SCH (08:15)
[2022-10-09] MEDS: LACTULOSE 20GM/30ML SYRUP UDC PO SCH ×2 (09:00→09:14)
[2022-10-09 09:14] VITALS: BP 144/84
[2022-10-09] MEDS: CARVedilol 6.25 MG TAB PO SCH (09:14)
[2022-10-09] MEDS: OMEPRAZOLE 20MG CAP PO SCH (09:14)
[2022-10-09] MEDS: ASCORBIC ACID 500 MG TAB PO SCH (09:14)
[2022-10-09] MEDS: SENOKOT S TAB PO SCH (09:14)
[2022-10-09] MEDS: SPIRONOLACTONE 25 MG TAB PO SCH (09:14)
[2022-10-09] MEDS: PARoxetine 20MG TABLET PO SCH (09:14)
[2022-10-09 10:36] VITALS: O2SAT 92
[2022-10-09] MEDS ORDERED: LOSA100T46 PO (10:45)
[2022-10-09] MEDS ORDERED: CEFD300C41 PO (10:45)
[2022-10-09] MEDS ORDERED: PRED20TA PO (10:45)
[2022-10-09] MEDS ORDERED: FUROSEMIDE 40MG/4ML VIAL IV ONE (11:00)
== END 2022-10-09 12:41 | disposition home health service (06) | DRG 189 ==
LOC: EDBD 22:40 → M ED 22:40 → M ED INP 10-06 03:23 → ENRESERV 10-06 12:23 → M PCU 10-06 14:01 → M MSPAV 10-08 13:19
PROVIDERS: ADMIT Family Medicine; ATTEND Internal Medicine Nephrology
DX: J96.21 Acute and chronic respiratory failure with hypoxia (principal); J18.9 Pneumonia, unspecified organism; J44.1 Chronic obstructive pulmonary disease with (acute) exacerbation; C25.9 Malignant neoplasm of pancreas, unspecified; J44.0 Chronic obstructive pulmonary disease with (acute) lower respiratory infection; I50.30 Unspecified diastolic (congestive) heart failure; I11.0 Hypertensive heart disease with heart failure; E78.5 Hyperlipidemia, unspecified; R74.01 Elevation of levels of liver transaminase levels; G47.33 Obstructive sleep apnea (adult) (pediatric); J96.22 Acute and chronic respiratory failure with hypercapnia; R25.1 Tremor, unspecified; F32.A Depression, unspecified; K21.9 Gastro-esophageal reflux disease without esophagitis; K59.09 Other constipation; K80.20 Calculus of gallbladder without cholecystitis without obstruction; Z87.891 Personal history of nicotine dependence; Z79.52 Long term (current) use of systemic steroids; Z79.899 Other long term (current) drug therapy; Z88.8 Allergy status to other drugs, medicaments and biological substances; Z20.822 Contact with and (suspected) exposure to COVID-19

== ENCOUNTER → 2022-10-05 | Outpatient (CLI) | payer OTHER ==
[~2022-10-05] MED LIST changes: +CARV12.5 PO; +COMBAER6 INH; +FLUT1BLS2 INH; +IPRA6SP; +NALO4SPR NS; +ONDA-195 PO; -PRED10TA2; +PRED5TA PO; +REFR0.5D8 OU; +SENN8.6T58 PO; +VITMTA PO
== END ==
LOC: M PLAIMG 14:28
PROVIDERS: ATTEND Internal Medicine Pulmonary Disease
DX: J43.1 Panlobular emphysema (principal); R05.9 Cough, unspecified; J96.11 Chronic respiratory failure with hypoxia

== ENCOUNTER → 2022-12-12 | Outpatient (CLI) | payer OTHER, MEDICARE ==
[~2022-12-12] MED LIST changes: +CARV12.5 PO; +CEFD300C41; +CEFD300C41 PO; +COMBAER6 INH; +FLUT1BLS2 INH; +IPRA6SP; +NALO4SPR NS; +OMEP10CASR PO; +ONDA-195 PO; +OXYC10TA12 PO; +PRED10TA2; +PRED5TA PO; +PROHANCE 279.3MG/ML 15ML VIAL As Ordered ONE; +PROHANCE 279.3MG/ML 5ML VIAL As Ordered ONE; +REFR0.5D8 OU; +SENN8.6T58 PO; +VITMTA PO
== END ==
LOC: M RAD 08:44
PROVIDERS: ATTEND Specialist
DX: C25.9 Malignant neoplasm of pancreas, unspecified (principal); N28.1 Cyst of kidney, acquired; R10.11 Right upper quadrant pain; R10.12 Left upper quadrant pain
CPT/HCPCS: 74183; A9576

== ENCOUNTER → 2023-03-20 | Outpatient (CLI) | payer OTHER, MEDICARE ==
[~2023-03-20] MED LIST changes: +BUPR20DI3 TD; +BUTR10DI TOP; +CEFD1CAP9; +CEFD1CAP9 PO; -CEFD300C41; -CEFD300C41 PO; +COVI50SY IM; +CREO3000 PO; +DICY1CAP8 PO; +FLU60SYR IM; +GASTROGRAFIN SOLUTION 30ML As Ordered ONE; +ISOVUE-370 76% 100ML VIAL As Ordered ONE; +PREG25CA PO; -PROHANCE 279.3MG/ML 15ML VIAL As Ordered ONE; -PROHANCE 279.3MG/ML 5ML VIAL As Ordered ONE; +[UNRECOGNIZED DRUG - CODE] IM
== END ==
LOC: M RAD 13:04
PROVIDERS: ATTEND Internal Medicine Medical Oncology
DX: C25.9 Malignant neoplasm of pancreas, unspecified (principal)
CPT/HCPCS: 71260; 74177; Q9963; Q9967

== ENCOUNTER 2023-03-28 23:37 | Inpatient (IN) | payer OTHER, MEDICARE ==
[~2023-03-28] VITALS: Ht 175.3 cm; Wt 98.3 kg
[~2023-03-28 23:37] MED LIST changes: +BUPR2SUB SL; -GASTROGRAFIN SOLUTION 30ML As Ordered ONE; -ISOVUE-370 76% 100ML VIAL As Ordered ONE
[2023-03-28] MEDS: LEVALBUTEROL 1.25MG 0.5ML CONCENTRATE NEB NEB PRN ×2 (23:48→23:49)
[2023-03-28] MEDS ORDERED: MIDAZOLAM INJ 2MG/2ML VIAL IV STA (23:51)
[2023-03-29 00:18] LABS: HEMATOCRIT 31.8 % (42.0-52.0); HEMOGLOBIN 9.9 g/dl (13.5-17.5); MEAN CORPUSCULAR HEMOGLOBIN 27.5 pg (27.0-33.0); MEAN CORPUSCULAR HGB CONC 31.1 g/dl (32.0-36.5); MEAN CORPUSCULAR VOLUME 88.3 fl (80.0-96.0); PLATELET COUNT, AUTOMATED 393 10^3/uL (150-450); WHITE BLOOD COUNT 10.5 10^3/uL (4.0-10.0)
[2023-03-29 00:22] LABS: ABG BASE EXCESS -0.4 (-2.0-2.0); ABG HCO3 24.6 MMOL/L (22.0-26.0); ABG O2 SATURATION 99.2 % (95.0-99.0); ABG PARTIAL PRESSURE CO2 41.5 mmHg (35.0-45.0); ABG PARTIAL PRESSURE O2 183.8 mmHg (75.0-100.0); ABG STANDARD HCO3 24.2 MMOL/L. (22.0-26.0); ABG TOTAL CO2 25.8 MMOL/L (23.0-31.0)
[2023-03-29 00:32] LABS: ALBUMIN 3.1 G/DL (3.2-5.2); ALKALINE PHOSPHATASE 283 U/L (46-116); ALT/SGPT 85 U/L (7.0-40); AST/SGOT 105 U/L (<34); BILIRUBIN,DIRECT 0.4 MG/DL (<0.4); BLOOD UREA NITROGEN 16 MG/DL (9-23); CALCIUM LEVEL 8.8 MG/DL (8.3-10.6); CARBON DIOXIDE LEVEL 27 MMOL/L (20-31); CHLORIDE LEVEL 102 MMOL/L (98-107); CK-MB VALUE MASS < 1.0 NG/ML (<3.6); CPK CREATINE PHOSPHOKINASE 33 U/L (46-171); CREATININE FOR GFR 0.97 MG/DL (0.70-1.30); GLOMERULAR FILTRATION RATE > 60.0 (>42); GLUCOSE, FASTING 141 MG/DL (74-106); MB/CK RELATIVE INDEX 3.03 (< OR =4); POTASSIUM SERUM 3.6 MMOL/L (3.5-5.1); SODIUM LEVEL 137 MMOL/L (136-145); TOTAL PROTEIN 5.9 G/DL (5.7-8.2)
[2023-03-29 00:34] LABS: THYROID STIMULATING HORMONE 1.495 uIU/ML (0.55-4.78)
[2023-03-29 00:38] LABS: PROCALCITONIN 0.68 ng/ml
[2023-03-29 00:46] LABS: EOSINOPHILS 2 % (0-3); LYMPHOCYTES 11 % (16-44); METAMYELOCYTES 1 % (0-0); MONOCYTES 7 % (0-5); NEUTROPHILS 78 % (28-66); PLATELET ESTIMATE NORMAL (NORMAL); POLYCHROMASIA 1+
[2023-03-29 00:47] LABS: ANISOCYTOSIS 1+; HYPOCHROMASIA 1+
[2023-03-29 00:48] LABS: OVALOCYTES 1+; PLATELET CLUMPS SMALL AMT
[2023-03-29] MEDS: LEVALBUTEROL 1.25MG 0.5ML CONCENTRATE NEB NEB PRN (01:40)
[2023-03-29] MEDS ORDERED: ACETAMINOPHEN TAB 650MG DOSE (2X325MG) PO ONE (01:40)
[2023-03-29] MEDS ORDERED: ISOVUE-370 76% 100ML VIAL As Ordered ONE (01:47)
[2023-03-29] MEDS ORDERED: cefTRIAXone SOD 1 GM in D5W MINI-BAG PLUS 50 ML IV ONE (03:50)
[2023-03-29] MEDS ORDERED: PIPERACILLIN/TAZOBACTAM SOD 4.5 GM in D5W MINI-BAG PLUS 50 ML IV ONE (03:55)
[2023-03-29] MEDS ORDERED: AZITHROMYCIN INJ 500 MG, VIAL MATE ADAPTER 1 EACH in NS 250 ML IV ONE (04:00)
[2023-03-29] MEDS ORDERED: GLUCAGON INJ 1MG VIAL SC PRN (04:05)
[2023-03-29] MEDS ORDERED: ONDANSETRON 4MG 2ML VIAL IV PRN (04:05)
[2023-03-29] MEDS ORDERED: ACETAMINOPHEN TAB 650MG DOSE (2X325MG) PO PRN (04:05)
[2023-03-29] MEDS ORDERED: DEXTROSE 50% 50ML SYRINGE IV PRN (04:05)
[2023-03-29] MEDS ORDERED: GLUCOSE 4GM CHEW TABLET PO PRN (04:05)
[2023-03-29] MEDS ORDERED: LR 1,000 ML IV SCH (04:05)
[2023-03-29] MEDS ORDERED: ALBUTEROL SULFATE 2.5MG/0.5ML INH NEB SOLN NEB PRN (04:05)
[2023-03-29] MEDS: methylPREDNISolone 40MG 1ML VIAL IV SCH ×2 (05:49→11:23)
[2023-03-29] MEDS ORDERED: INSULIN LISPRO (NovoLOG) PER UNIT SC SCH (06:00)
[2023-03-29] MEDS ORDERED: DICY1CAP8 PO (06:37)
[2023-03-29] MEDS ORDERED: META0.52 PO (06:37)
[2023-03-29] MEDS ORDERED: CREO12CA PO (06:37)
[2023-03-29] MEDS ORDERED: LINZ72CA PO (06:37)
[2023-03-29] MEDS ORDERED: OMEP1CAP73 PO (06:37)
[2023-03-29] MEDS ORDERED: BUPR1SUB4 SL (06:37)
[2023-03-29] MEDS ORDERED: SYMB16INH INH (06:37)
[2023-03-29] MEDS ORDERED: LOSA100T46 PO (06:37)
[2023-03-29 06:38] LABS: HEMATOCRIT 27.7 % (42.0-52.0); HEMOGLOBIN 8.6 g/dl (13.5-17.5); MEAN CORPUSCULAR HEMOGLOBIN 27.5 pg (27.0-33.0); MEAN CORPUSCULAR VOLUME 88.5 fl (80.0-96.0); RED BLOOD COUNT 3.13 10^6/uL (4.30-6.10); WHITE BLOOD COUNT 12.4 10^3/uL (4.0-10.0)
[2023-03-29] MEDS ORDERED: HOME MED LIST COMPLETE! XX SCH (06:40)
[2023-03-29 06:46] LABS: PLATELET COUNT, AUTOMATED 276 10^3/uL (150-450)
[2023-03-29 07:23] LABS: BASOPHILS 1 % (0-1); LYMPHOCYTES 13 % (16-44); METAMYELOCYTES 1 % (0-0); MONOCYTES 4 % (0-5); NEUTROPHILS 71 % (28-66)
[2023-03-29 07:24] LABS: ANISOCYTOSIS 1+; HYPOCHROMASIA 1+; POLYCHROMASIA 1+
[2023-03-29 07:25] LABS: OVALOCYTES 1+; PLATELET ESTIMATE NORMAL (NORMAL)
[2023-03-29] MEDS ORDERED: IPRATROPIUM 0.06% NASAL SPRAY 15 ML (ATROVENT) PRN (08:00)
[2023-03-29 08:23] LABS: ALBUMIN 2.6 G/DL (3.2-5.2); ALKALINE PHOSPHATASE 232 U/L (46-116); ALT/SGPT 89 U/L (7.0-40); AST/SGOT 68 U/L (<34); BILIRUBIN,TOTAL 1.1 MG/DL (0.3-1.2); BLOOD UREA NITROGEN 16 MG/DL (9-23); CALCIUM LEVEL 8.3 MG/DL (8.3-10.6); CARBON DIOXIDE LEVEL 26 MMOL/L (20-31); CHLORIDE LEVEL 102 MMOL/L (98-107); CREATININE FOR GFR 1.07 MG/DL (0.70-1.30); GLOMERULAR FILTRATION RATE > 60.0 (>42); GLUCOSE, FASTING 165 MG/DL (74-106); PHOSPHORUS LEVEL 2.4 MG/DL (2.4-5.1); POTASSIUM SERUM 3.9 MMOL/L (3.5-5.1); SODIUM LEVEL 137 MMOL/L (136-145); TOTAL PROTEIN 5.1 G/DL (5.7-8.2)
[2023-03-29] MEDS: HEPARIN SOD (PORCINE) 5000UNITS/ML 1ML VIAL/SYRINGE SC SCH ×2 (09:08→20:21)
[2023-03-29] MEDS: IPRATROPIUM 0.5MG/ALBUTEROL 2.5MG INH SOL UD 3ML (DUONEB) NEB SCH ×3 (09:08→20:04)
[2023-03-29] MEDS ORDERED: HYDROMORPHONE HCL 0.5 MG/ 0.5 ML SYRINGE IV PRN ×2 (09:10)
[2023-03-29] MEDS ORDERED: DICYCLOMINE 10 MG CAP PO PRN (10:05)
[2023-03-29] MEDS ORDERED: EMLA CREAM 5GM TUBE (LIDOCAINE/PRILOCAINE) TOP SCH (10:05)
[2023-03-29] MEDS ORDERED: METOCLOPRAMIDE 10MG TAB PO PRN (10:05)
[2023-03-29] MEDS ORDERED: LACTULOSE 20GM/30ML SYRUP UDC PO PRN (10:05)
[2023-03-29 10:06] VITALS: BP 164/82; TEMP 97.4; O2SAT 95
[2023-03-29] MEDS: SENNA 8.6 MG TAB (SENOKOT) PO SCH ×2 (11:20→21:00)
[2023-03-29] MEDS: MULTIVITAMINS/MINERALS THERAP 1 TAB PO SCH (11:21)
[2023-03-29] MEDS: LORATADINE 10 MG TAB PO SCH (11:21)
[2023-03-29] MEDS: FOLIC ACID 1MG TAB PO SCH (11:21)
[2023-03-29] MEDS: BUPRENORPHINE/NALOXONE 2-0.5MG SUBLINGUAL TABLET(SUBOXONE) SL SCH ×2 (11:21→18:30)
[2023-03-29] MEDS: ASCORBIC ACID 500 MG TAB PO SCH (11:21)
[2023-03-29] MEDS: SPIRONOLACTONE 25 MG TAB PO SCH (11:22)
[2023-03-29] MEDS: PARoxetine 20MG TABLET PO SCH (11:22)
[2023-03-29] MEDS: OMEPRAZOLE 20MG CAP PO SCH (11:22)
[2023-03-29] MEDS: CARVedilol 6.25 MG TAB PO SCH ×2 (11:22→20:23)
[2023-03-29 11:24] VITALS: BP 136/73; TEMP 96.5; O2SAT 93
[2023-03-29] MEDS: TIOTROPIUM INHALER/CAPSULE (SPIRIVA) INH SCH (11:27)
[2023-03-29] MEDS: SYMBICORT 160/4.5MCG INHALER 6GM INH SCH ×2 (11:27→20:04)
[2023-03-29] MEDS ORDERED: PIPERACILLIN/TAZOBACTAM SOD 4.5 GM in D5W MINI-BAG PLUS 50 ML IV SCH (12:00)
[2023-03-29] MEDS: LevoFLOXacin 750 MG TABLET PO SCH (12:30)
[2023-03-29] MEDS: CREON-12 CAPSULE PO SCH ×2 (12:30→18:30)
[2023-03-29 15:19] VITALS: BP 135/71; TEMP 96.5; O2SAT 90
[2023-03-29 19:33] LABS: HEPATITIS B CORE ANTIBODY IGM NEGATIVE (NEGATIVE); HEPATITIS C VIRUS ABY INDEX 0.12 INDEX (<0.8)
[2023-03-29 19:34] VITALS: BP 158/58; TEMP 97.3; O2SAT 94
[2023-03-29] MEDS: ATORVASTATIN 20 MG TAB PO SCH (20:22)
[2023-03-29] MEDS: LOSARTAN 50MG TABLET PO SCH (20:23)
[2023-03-29] MEDS ORDERED: methylPREDNISolone 40MG 1ML VIAL IV SCH (23:00)
[2023-03-29 23:26] VITALS: BP 115/63; TEMP 97.6; O2SAT 94
[2023-03-30] VITALS (8 sets, daily range): BP systolic 106–154; BP diastolic 62–76; TEMP 96.8–97.9; O2SAT 93–97
[2023-03-30] MEDS: IPRATROPIUM 0.5MG/ALBUTEROL 2.5MG INH SOL UD 3ML (DUONEB) NEB SCH ×4 (00:35→19:41)
[2023-03-30] MEDS: BUPRENORPHINE/NALOXONE 2-0.5MG SUBLINGUAL TABLET(SUBOXONE) SL SCH ×3 (02:04→18:48)
[2023-03-30 05:55] LABS: HEMATOCRIT 26.8 % (42.0-52.0); HEMOGLOBIN 8.5 g/dl (13.5-17.5); MEAN CORPUSCULAR HEMOGLOBIN 27.5 pg (27.0-33.0); MEAN CORPUSCULAR HGB CONC 31.7 g/dl (32.0-36.5); MEAN CORPUSCULAR VOLUME 86.7 fl (80.0-96.0); PLATELET COUNT, AUTOMATED 251 10^3/uL (150-450); RED BLOOD COUNT 3.09 10^6/uL (4.30-6.10); WHITE BLOOD COUNT 17.8 10^3/uL (4.0-10.0)
[2023-03-30 06:19] LABS: ALBUMIN 2.4 G/DL (3.2-5.2); ALKALINE PHOSPHATASE 186 U/L (46-116); ALT/SGPT 60 U/L (7.0-40); AST/SGOT 20 U/L (<34); BILIRUBIN,TOTAL 1.1 MG/DL (0.3-1.2); BLOOD UREA NITROGEN 20 MG/DL (9-23); CALCIUM LEVEL 8.7 MG/DL (8.3-10.6); CARBON DIOXIDE LEVEL 30 MMOL/L (20-31); CHLORIDE LEVEL 103 MMOL/L (98-107); CREATININE FOR GFR 1.01 MG/DL (0.70-1.30); GLOMERULAR FILTRATION RATE > 60.0 (>42); GLUCOSE, FASTING 137 MG/DL (74-106); MAGNESIUM LEVEL 1.6 MG/DL (1.8-2.4); POTASSIUM SERUM 4.4 MMOL/L (3.5-5.1); SODIUM LEVEL 137 MMOL/L (136-145); TOTAL PROTEIN 4.9 G/DL (5.7-8.2)
[2023-03-30] MEDS: LevoFLOXacin 750 MG TABLET PO SCH (06:23)
[2023-03-30] MEDS: MAG SULF 1GM/100ML (MAG RUN) 1 GM in IV 1 EA IV SCH ×2 (06:50→08:15)
[2023-03-30 06:57] LABS: LYMPHOCYTES 4 % (16-44); MONOCYTES 5 % (0-5); NEUTROPHILS 86 % (28-66)
[2023-03-30 06:58] LABS: ANISOCYTOSIS 1+; MICROCYTOSIS 1+; OVALOCYTES 1+; POIKILOCYTOSIS 1+
[2023-03-30 06:59] LABS: PLATELET ESTIMATE NORMAL (NORMAL)
[2023-03-30] MEDS: TIOTROPIUM INHALER/CAPSULE (SPIRIVA) INH SCH (07:28)
[2023-03-30] MEDS: SYMBICORT 160/4.5MCG INHALER 6GM INH SCH ×2 (07:28→19:41)
[2023-03-30] MEDS: CREON-12 CAPSULE PO SCH ×3 (08:15→18:48)
[2023-03-30] MEDS: FOLIC ACID 1MG TAB PO SCH (08:16)
[2023-03-30] MEDS: SENNA 8.6 MG TAB (SENOKOT) PO SCH ×2 (08:16→21:32)
[2023-03-30] MEDS: PARoxetine 20MG TABLET PO SCH (08:16)
[2023-03-30] MEDS: ASCORBIC ACID 500 MG TAB PO SCH (08:16)
[2023-03-30] MEDS: OMEPRAZOLE 20MG CAP PO SCH (08:16)
[2023-03-30] MEDS: SPIRONOLACTONE 25 MG TAB PO SCH (08:17)
[2023-03-30] MEDS: CARVedilol 6.25 MG TAB PO SCH ×2 (08:17→21:32)
[2023-03-30] MEDS: LORATADINE 10 MG TAB PO SCH (08:17)
[2023-03-30] MEDS: MULTIVITAMINS/MINERALS THERAP 1 TAB PO SCH (08:17)
[2023-03-30] MEDS: HEPARIN SOD (PORCINE) 5000UNITS/ML 1ML VIAL/SYRINGE SC SCH ×2 (08:18→21:33)
[2023-03-30] MEDS ORDERED: DARBEPOETIN 200MCG/0.4ML *NON-DIALYSIS* SYRINGE SC SCH (09:00)
[2023-03-30 12:59] LABS: PROCALCITONIN 18.71 ng/ml
[2023-03-30] MEDS ORDERED: VANCOMYCIN HCL 750 MG, VIAL MATE ADAPTER 1 EACH in D5W 250 ML IV SCH (14:20)
[2023-03-30] MEDS: methylPREDNISolone 40MG 1ML VIAL IV SCH (14:26)
[2023-03-30] MEDS ORDERED: VANCOMYCIN HCL 1,000 MG, VIAL MATE ADAPTER 1 EACH in D5W 250 ML IV ONE ×2 (15:00→16:00)
[2023-03-30] MEDS: CEFEPIME HCL 2 GM in D5W MINI-BAG PLUS 50 ML IV SCH (18:48)
[2023-03-30] MEDS: LOSARTAN 50MG TABLET PO SCH (21:32)
[2023-03-30] MEDS: ATORVASTATIN 20 MG TAB PO SCH (21:33)
[2023-03-31] VITALS: BP 157/76; TEMP 97.6; O2SAT 96
[2023-03-31] MEDS: methylPREDNISolone 40MG 1ML VIAL IV SCH ×2 (00:01→06:25)
[2023-03-31] MEDS: IPRATROPIUM 0.5MG/ALBUTEROL 2.5MG INH SOL UD 3ML (DUONEB) NEB SCH ×3 (01:43→14:18)
[2023-03-31] MEDS: CEFEPIME HCL 2 GM in D5W MINI-BAG PLUS 50 ML IV SCH ×3 (03:05→17:36)
[2023-03-31 03:17] VITALS: BP 133/66; TEMP 97.2; O2SAT 94
[2023-03-31] MEDS: BUPRENORPHINE/NALOXONE 2-0.5MG SUBLINGUAL TABLET(SUBOXONE) SL SCH ×3 (03:41→17:36)
[2023-03-31] MEDS: VANCOMYCIN HCL 750 MG, VIAL MATE ADAPTER 1 EACH in D5W 250 ML IV SCH ×2 (03:41→15:04)
[2023-03-31 07:24] LABS: BASO % 0.1 % (0.0-1.0); HEMATOCRIT 26.9 % (42.0-52.0); HEMOGLOBIN 8.4 g/dl (13.5-17.5); LYMPH # 0.7 10^3/uL (1.5-5.0); LYMPH % 3.8 % (24.0-44.0); MEAN CORPUSCULAR HEMOGLOBIN 27.4 pg (27.0-33.0); MEAN CORPUSCULAR HGB CONC 31.2 g/dl (32.0-36.5); MEAN CORPUSCULAR VOLUME 87.6 fl (80.0-96.0); MONO % 5.5 % (2.0-8.0); NEUTROPHILS # 16.2 10^3/uL (1.5-8.5); NEUTROPHILS % 89.1 % (36.0-66.0); PLATELET COUNT, AUTOMATED 276 10^3/uL (150-450); RED BLOOD COUNT 3.07 10^6/uL (4.30-6.10); WHITE BLOOD COUNT 18.2 10^3/uL (4.0-10.0)
[2023-03-31 07:48] VITALS: BP 136/72; TEMP 97.4; O2SAT 96
[2023-03-31] MEDS: SYMBICORT 160/4.5MCG INHALER 6GM INH SCH (07:59)
[2023-03-31] MEDS: TIOTROPIUM INHALER/CAPSULE (SPIRIVA) INH SCH (07:59)
[2023-03-31 08:08] LABS: ALBUMIN 2.4 G/DL (3.2-5.2); ALKALINE PHOSPHATASE 175 U/L (46-116); ALT/SGPT 45 U/L (7.0-40); AST/SGOT 15 U/L (<34); BILIRUBIN,TOTAL 0.7 MG/DL (0.3-1.2); BLOOD UREA NITROGEN 22 MG/DL (9-23); CALCIUM LEVEL 8.7 MG/DL (8.3-10.6); CARBON DIOXIDE LEVEL 29 MMOL/L (20-31); CHLORIDE LEVEL 106 MMOL/L (98-107); GLOMERULAR FILTRATION RATE > 60.0 (>42); GLUCOSE, FASTING 140 MG/DL (74-106); POTASSIUM SERUM 4.4 MMOL/L (3.5-5.1); SODIUM LEVEL 140 MMOL/L (136-145); TOTAL PROTEIN 4.9 G/DL (5.7-8.2)
[2023-03-31] MEDS: MULTIVITAMINS/MINERALS THERAP 1 TAB PO SCH (08:34)
[2023-03-31] MEDS: HEPARIN SOD (PORCINE) 5000UNITS/ML 1ML VIAL/SYRINGE SC SCH (08:34)
[2023-03-31] MEDS: PARoxetine 20MG TABLET PO SCH (08:35)
[2023-03-31] MEDS: OMEPRAZOLE 20MG CAP PO SCH (08:35)
[2023-03-31] MEDS: ASCORBIC ACID 500 MG TAB PO SCH (08:35)
[2023-03-31] MEDS: SPIRONOLACTONE 25 MG TAB PO SCH (08:35)
[2023-03-31] MEDS: CREON-12 CAPSULE PO SCH ×3 (08:35→17:36)
[2023-03-31] MEDS: SENNA 8.6 MG TAB (SENOKOT) PO SCH (08:35)
[2023-03-31] MEDS: CARVedilol 6.25 MG TAB PO SCH (08:35)
[2023-03-31] MEDS: FOLIC ACID 1MG TAB PO SCH (08:35)
[2023-03-31] MEDS: LORATADINE 10 MG TAB PO SCH (08:36)
[2023-03-31 11:28] LABS: VANCOMYCIN RANDOM 19.4 UG/ML
[2023-03-31 12:23] VITALS: BP 140/67; TEMP 97; O2SAT 97
[2023-03-31 15:54] VITALS: BP 158/74; TEMP 97.5; O2SAT 95
[2023-03-31] MEDS ORDERED: AMOX875T2 PO (17:17)
[2023-03-31] MEDS ORDERED: DOXY-444 PO (17:17)
[2023-03-31] MEDS ORDERED: PRED10TA2 PO (17:17)
[2023-03-31] MEDS ORDERED: methylPREDNISolone 40MG 1ML VIAL IV SCH (18:00)
== END 2023-03-31 19:24 | disposition home or self-care (01) | DRG 871 ==
LOC: M ED 23:37 → M ED INP 03-29 04:03 → ENRESERV 03-29 09:18 → M PCU 03-29 10:06
PROVIDERS: ADMIT Internal Medicine; ATTEND Internal Medicine
PROC: B246ZZZ Ultrasonography of Right and Left Heart (ICD-10-PCS; principal; 2023-03-31)
DX: A41.1 Sepsis due to other specified staphylococcus (principal); J69.0 Pneumonitis due to inhalation of food and vomit; C25.9 Malignant neoplasm of pancreas, unspecified; J44.1 Chronic obstructive pulmonary disease with (acute) exacerbation; I10 Essential (primary) hypertension; E78.5 Hyperlipidemia, unspecified; K21.9 Gastro-esophageal reflux disease without esophagitis; D64.81 Anemia due to antineoplastic chemotherapy; R74.01 Elevation of levels of liver transaminase levels; E83.42 Hypomagnesemia; K42.9 Umbilical hernia without obstruction or gangrene; F32.A Depression, unspecified; Z90.49 Acquired absence of other specified parts of digestive tract; Z95.828 Presence of other vascular implants and grafts; Z79.52 Long term (current) use of systemic steroids; Z79.69 Long term (current) use of other immunomodulators and immunosuppressants; Z79.899 Other long term (current) drug therapy; Z99.81 Dependence on supplemental oxygen; Z87.891 Personal history of nicotine dependence; T45.1X5A Adverse effect of antineoplastic and immunosuppressive drugs, initial encounter

== ENCOUNTER 2023-05-10 10:51 | Emergency (ER) | payer OTHER ==
[~2023-05-10] VITALS: Ht 177.8 cm; Wt 104.5 kg
[~2023-05-10 10:51] MED LIST changes: +AMOX875T2 PO; +BUPR1SUB4 SL; +CREO12CA PO; +DOXY-444 PO; +LINZ72CA PO; +META0.52 PO; +OMEP1CAP73 PO
[2023-05-10] MEDS ORDERED: PERC5TAB12 PO (13:29)
[2023-05-10] MEDS: PERCOCET 5MG/325MG TAB PO ONE (14:01)
[2023-05-10 14:09] VITALS: BP 115/64; TEMP 98.1; O2SAT 96
== END 2023-05-10 14:25 | disposition home or self-care (01) ==
LOC: EDBD 10:51 → M ED 10:51
DX: S42.215A Unspecified nondisplaced fracture of surgical neck of left humerus, initial encounter for closed fracture (principal); W19.XXXA Unspecified fall, initial encounter; Y93.K9 Activity, other involving animal care; Y92.9 Unspecified place or not applicable; Y99.9 Unspecified external cause status; J44.9 Chronic obstructive pulmonary disease, unspecified; I10 Essential (primary) hypertension; Z87.891 Personal history of nicotine dependence; Z88.8 Allergy status to other drugs, medicaments and biological substances; Z79.51 Long term (current) use of inhaled steroids; Z79.899 Other long term (current) drug therapy; Z79.810 Long term (current) use of selective estrogen receptor modulators (SERMs); Z79.52 Long term (current) use of systemic steroids

== ENCOUNTER 2023-05-20 18:06 | Inpatient (IN) | payer OTHER ==
[~2023-05-20] VITALS: Ht 185.4 cm; Wt 113.9 kg
[~2023-05-20 18:06] MED LIST changes: -MIRA1POW3 PO; +MIRA33506 PO; +PERC5TAB12 PO
[2023-05-20] MEDS: IPRATROPIUM 0.5MG/ALBUTEROL 2.5MG INH SOL UD 3ML (DUONEB) NEB ONE (18:20)
[2023-05-20] MEDS ORDERED: IPRATROPIUM 0.5MG/ALBUTEROL 2.5MG INH SOL UD 3ML (DUONEB) NEB PRN (18:20)
[2023-05-20 18:38] LABS: ABG BASE EXCESS 1.9 (-2.0-2.0); ABG HCO3 27.2 MMOL/L (22.0-26.0); ABG O2 SATURATION 98.6 % (95.0-99.0); ABG PARTIAL PRESSURE CO2 46.5 mmHg (35.0-45.0); ABG PARTIAL PRESSURE O2 125.8 mmHg (75.0-100.0); ABG STANDARD HCO3 26.2 MMOL/L. (22.0-26.0); ABG TOTAL CO2 28.6 MMOL/L (23.0-31.0); ABG pH (ARTERIAL) 7.385 UNITS (7.350-7.450)
[2023-05-20] MEDS: NS 1,000 ML IV ONE ×2 (18:39→23:12)
[2023-05-20 18:54] LABS: HEMATOCRIT 21.3 % (42.0-52.0); MEAN CORPUSCULAR HEMOGLOBIN 27.4 pg (27.0-33.0); MEAN CORPUSCULAR HGB CONC 30.5 g/dl (32.0-36.5); MEAN CORPUSCULAR VOLUME 89.9 fl (80.0-96.0); PLATELET COUNT, AUTOMATED 481 10^3/uL (150-450); RED BLOOD COUNT 2.37 10^6/uL (4.30-6.10); WHITE BLOOD COUNT 13.9 10^3/uL (4.0-10.0)
[2023-05-20 19:08] LABS: HEMOGLOBIN 6.5 g/dl (13.5-17.5)
[2023-05-20 19:16] LABS: ALBUMIN 2.1 G/DL (3.2-5.2); ALKALINE PHOSPHATASE 253 U/L (46-116); ALT/SGPT 629 U/L (7.0-40); AST/SGOT 761 U/L (<34); BILIRUBIN,DIRECT 1.3 MG/DL (<0.4); BILIRUBIN,TOTAL 1.8 MG/DL (0.3-1.2); BLOOD UREA NITROGEN 30 MG/DL (9-23); CALCIUM LEVEL 8.3 MG/DL (8.3-10.6); CARBON DIOXIDE LEVEL 32 MMOL/L (20-31); CHLORIDE LEVEL 106 MMOL/L (98-107); CK-MB VALUE MASS < 1.0 NG/ML (<3.6); CPK CREATINE PHOSPHOKINASE 32 U/L (46-171); CREATININE FOR GFR 1.18 MG/DL (0.70-1.30); GLOMERULAR FILTRATION RATE > 60.0 (>42); GLUCOSE, FASTING 129 MG/DL (74-106); MB/CK RELATIVE INDEX 3.12 (< OR =4); POTASSIUM SERUM 4.2 MMOL/L (3.5-5.1); SODIUM LEVEL 141 MMOL/L (136-145); TOTAL PROTEIN 4.8 G/DL (5.7-8.2)
[2023-05-20 19:19] LABS: THYROXINE (T4) 7.2 UG/DL (4.5-10.9)
[2023-05-20 19:20] LABS: INR 1.25; PROTHROMBIN TIME 15.3 SECONDS (12.5-14.5); THYROID STIMULATING HORMONE 0.838 uIU/ML (0.55-4.78)
[2023-05-20] MEDS ORDERED: ISOVUE-370 76% 100ML VIAL As Ordered ONE (19:21)
[2023-05-20 20:10] LABS: LYMPHOCYTES 1 % (16-44); MONOCYTES 1 % (0-5); NEUTROPHILS 93 % (28-66)
[2023-05-20 20:11] LABS: PLATELET ESTIMATE INCREASED (NORMAL)
[2023-05-20 20:12] LABS: POLYCHROMASIA 1+
[2023-05-20 20:14] LABS: HYPOCHROMASIA 2+
[2023-05-20 20:17] LABS: PROCALCITONIN 3.83 ng/ml
[2023-05-20] MEDS: PANTOPRAZOLE 40MG VIAL IV ONE (20:43)
[2023-05-20 21:08] LABS: CK-MB VALUE MASS < 1.0 NG/ML (<3.6)
[2023-05-20 21:11] LABS: CPK CREATINE PHOSPHOKINASE 62 U/L (46-171); MB/CK RELATIVE INDEX 1.61 (< OR =4)
[2023-05-20 22:17] VITALS: BP 73/46; TEMP 99.9; O2SAT 96
[2023-05-20] MEDS ORDERED: MULTTAB61 PO (22:25)
[2023-05-20] MEDS ORDERED: HOME MED LIST COMPLETE! XX SCH (22:30)
[2023-05-20 22:32] VITALS: BP 88/59; TEMP 99.9; O2SAT 90
[2023-05-20] MEDS: LIDOCAINE 2% 5ML JELLY UROJET TOP ONE (22:55)
[2023-05-20] MEDS ORDERED: MORPHINE 2 MG/ML 1ML VIAL As Ordered ONE (23:08)
[2023-05-20] MEDS: MORPHINE 2 MG/ML 1ML VIAL IV ONE (23:10)
[2023-05-20] MEDS: PIPERACILLIN/TAZOBACTAM SOD 3.375 GM in D5W MINI-BAG PLUS 50 ML IV ONE (23:11)
[2023-05-20] MEDS: HYDROCORTISONE 100MG/2ML VIAL IV ONE (23:11)
[2023-05-20 23:32] VITALS: BP 90/56; TEMP 100.1; O2SAT 92
[2023-05-20 23:50] VITALS: BP 84/51; TEMP 100.9; O2SAT 94
[2023-05-21] VITALS (48 sets, daily range): BP systolic 82–125; BP diastolic 46–82; TEMP 98–101.9; O2SAT 90–100
[2023-05-21] MEDS: LR 1,000 ML IV ONE ×2 (00:11→02:40)
[2023-05-21 00:47] LABS: APPEARANCE, URINE MANUAL CLEAR (CLEAR)
[2023-05-21 00:48] LABS: COLOR, URINE MANUAL DK YELLOW (YELLOW)
[2023-05-21 00:49] LABS: BILIRUBIN, URINE MANUAL NEGATIVE (NEGATIVE); BLOOD URINE MANUAL TRACE (NEGATIVE); GLUCOSE, URINE (UA) MANUAL NEGATIVE (NEGATIVE); KETONE, URINE MANUAL NEGATIVE (NEGATIVE); LEUKOCYTE ESTERASE, URINE MAN NEGATIVE (NEGATIVE); NITRITE, URINE MANUAL NEGATIVE (NEGATIVE); PROTEIN, URINE MANUAL TRACE mg/dL (NEGATIVE); UROBILINOGEN, URINE MANUAL NORMAL (NORMAL)
[2023-05-21 00:51] LABS: SPECIFIC GRAVITY,URINE MANUAL 1.044 (1.002-1.035)
[2023-05-21 01:08] LABS: SQUAMOUS EPITHELIAL CELL URINE SMALL AMOUNT /hpf (SMALL AMT)
[2023-05-21 01:09] LABS: BACTERIA, URINE NONE SEEN; HYALINE CAST, URINE NONE SEEN /lpf (0-1); TRANSITIONAL EPI CELLS, URINE MOD AMOUNT /hpf
[2023-05-21] MEDS: HYDROMORPHONE HCL 0.5 MG/ 0.5 ML SYRINGE IV ONE ×2 (01:35→03:43)
[2023-05-21] MEDS: IPRATROPIUM 0.5MG/ALBUTEROL 2.5MG INH SOL UD 3ML (DUONEB) NEB SCH (01:43)
[2023-05-21] MEDS: ATORVASTATIN 20 MG TAB PO SCH (01:47)
[2023-05-21] MEDS: PREGABALIN 25 MG CAP (LYRICA) PO SCH (01:47)
[2023-05-21] MEDS ORDERED: DICYCLOMINE 10 MG CAP PO PRN (02:10)
[2023-05-21 02:23] LABS: HEMATOCRIT 19.4 % (42.0-52.0); HEMOGLOBIN 6.3 g/dl (13.5-17.5)
[2023-05-21] MEDS: ALBUTEROL SULFATE 2.5MG/0.5ML INH NEB SOLN NEB PRN (04:09)
[2023-05-21 04:32] LABS: HEPATITIS B SURFACE ANTIBODY NEGATIVE (POSITIVE)
[2023-05-21 05:04] LABS: HEPATITIS C VIRUS ABY INDEX 0.06 INDEX (<0.8)
[2023-05-21] MEDS: PIPERACILLIN/TAZOBACTAM SOD 4.5 GM in D5W MINI-BAG PLUS 50 ML IV SCH (06:14)
[2023-05-21 06:50] LABS: HEMATOCRIT 24.5 % (42.0-52.0); MEAN CORPUSCULAR HEMOGLOBIN 28.2 pg (27.0-33.0); MEAN CORPUSCULAR HGB CONC 32.7 g/dl (32.0-36.5); MEAN CORPUSCULAR VOLUME 86.3 fl (80.0-96.0); RED BLOOD COUNT 2.84 10^6/uL (4.30-6.10)
[2023-05-21 06:58] LABS: PLATELET COUNT, AUTOMATED 354 10^3/uL (150-450); WHITE BLOOD COUNT 35.8 10^3/uL (4.0-10.0)
[2023-05-21] MEDS: SYMBICORT 160/4.5MCG INHALER 6GM INH SCH (07:09)
[2023-05-21] MEDS: VANCOMYCIN HCL 1,000 MG, VIAL MATE ADAPTER 1 EACH in NS 250 ML IV ONE (07:35)
[2023-05-21] MEDS ORDERED: VANCOMYCIN HCL 1,000 MG, VIAL MATE ADAPTER 1 EACH in NS 250 ML IV SCH (07:35)
[2023-05-21] MEDS: UNRESOLVED CLARIFICATION ENTRY XX STA (07:37)
[2023-05-21] MEDS: TIOTROPIUM INHALER/CAPSULE (SPIRIVA) INH SCH (08:00)
[2023-05-21 08:37] LABS: HEMATOCRIT 25.2 % (42.0-52.0); HEMOGLOBIN 8.3 g/dl (13.5-17.5)
[2023-05-21] MEDS ORDERED: PANTOPRAZOLE 40MG VIAL IV SCH (09:00)
[2023-05-21] MEDS: PANTOPRAZOLE 40MG VIAL IV SCH (09:35)
[2023-05-21] MEDS: methylPREDNISolone 40MG 1ML VIAL IV SCH (09:35)
[2023-05-21] MEDS: VANCOMYCIN HCL 1,000 MG, VIAL MATE ADAPTER 1 EACH in D5W 250 ML IV SCH (09:36)
[2023-05-21] MEDS: FUROSEMIDE 20MG/2ML VIAL IV ONE (10:47)
[2023-05-21] MEDS: SUCRALFATE SUSP 1GM/10ML UD PO SCH (12:37)
[2023-05-21] MEDS: ACETAMINOPHEN TAB 650MG DOSE (2X325MG) PO PRN (12:38)
[2023-05-21] MEDS: guaiFENesin ER TABLET 600 MG TAB PO SCH (14:08)
[2023-05-21] MEDS: FORMOTEROL FUMARATE 20 MCG/2 ML INHALATION SOLUTION (PERFOROMIST) INH SCH (14:13)
[2023-05-21] MEDS: GLYCOPYRROLATE INJ 0.2 MG/ML 2 ML VIAL NEB SCH (14:13)
[2023-05-21 14:27] LABS: HEMATOCRIT 24.9 % (42.0-52.0); HEMOGLOBIN 8.2 g/dl (13.5-17.5)
[2023-05-21 20:07] LABS: HEMATOCRIT 25.5 % (42.0-52.0); HEMOGLOBIN 8.4 g/dl (13.5-17.5)
[2023-05-21] MEDS: MAG SULF 1GM/100ML (MAG RUN) 1 GM in IV 1 EA IV SCH (20:14)
[2023-05-22] VITALS (23 sets, daily range): BP systolic 126–161; BP diastolic 71–87; TEMP 97.4–98.9; O2SAT 89–98
[2023-05-22 07:12] LABS: HEMATOCRIT 25.1 % (42.0-52.0); HEMOGLOBIN 8.4 g/dl (13.5-17.5); MEAN CORPUSCULAR HEMOGLOBIN 28.5 pg (27.0-33.0); MEAN CORPUSCULAR HGB CONC 33.5 g/dl (32.0-36.5); MEAN CORPUSCULAR VOLUME 85.1 fl (80.0-96.0); PLATELET COUNT, AUTOMATED 389 10^3/uL (150-450); RED BLOOD COUNT 2.95 10^6/uL (4.30-6.10)
[2023-05-22 07:27] LABS: WHITE BLOOD COUNT 30.6 10^3/uL (4.0-10.0)
[2023-05-22 07:35] LABS: ALBUMIN 1.9 G/DL (3.2-5.2); CALCIUM LEVEL 8.5 MG/DL (8.3-10.6); CREATININE FOR GFR 1.29 MG/DL (0.70-1.30); GLOMERULAR FILTRATION RATE 57.8 (>42); POTASSIUM SERUM 4.3 MMOL/L (3.5-5.1); TOTAL PROTEIN 4.6 G/DL (5.7-8.2)
[2023-05-22] MEDS: CARVedilol 3.125 MG TAB PO SCH (11:01)
[2023-05-22] MEDS: FUROSEMIDE 20MG/2ML VIAL IV ONE (11:01)
[2023-05-22] MEDS: AZITHROMYCIN 250MG TABLET PO SCH (11:01)
[2023-05-22] MEDS: RAMELTEON 8 MG TAB (ROZEREM) PO ONE (23:37)
[2023-05-23] VITALS (32 sets, daily range): BP systolic 138–161; BP diastolic 74–90; TEMP 97.1–98.4; O2SAT 92–99
[2023-05-23 05:44] LABS: BASO # 0.1 10^3/uL (0.0-0.2); BASO % 0.3 % (0.0-1.0); HEMATOCRIT 26.1 % (42.0-52.0); HEMOGLOBIN 8.6 g/dl (13.5-17.5); LYMPH # 0.8 10^3/uL (1.5-5.0); LYMPH % 2.9 % (24.0-44.0); MONO # 1.2 10^3/uL (0.0-0.8); NEUTROPHILS # 25.4 10^3/uL (1.5-8.5); NEUTROPHILS % 87.6 % (36.0-66.0); PLATELET COUNT, AUTOMATED 401 10^3/uL (150-450); RED BLOOD COUNT 3.07 10^6/uL (4.30-6.10)
[2023-05-23 06:12] LABS: CALCIUM LEVEL 8.5 MG/DL (8.3-10.6); CREATININE FOR GFR 1.25 MG/DL (0.70-1.30); GLOMERULAR FILTRATION RATE 59.9 (>42); MAGNESIUM LEVEL 2.2 MG/DL (1.8-2.4); POTASSIUM SERUM 4.4 MMOL/L (3.5-5.1)
[2023-05-23] MEDS: MIRALAX *UNIT DOSE* 17GM PACKET PO SCH (08:57)
[2023-05-23] MEDS: SODIUM CHLORIDE 0.9% INJ 10 ML SYR IV SCH (09:01)
[2023-05-23 09:17] LABS: ALBUMIN 1.9 G/DL (3.2-5.2); BILIRUBIN,DIRECT 0.7 MG/DL (<0.4); BILIRUBIN,TOTAL 1.2 MG/DL (0.3-1.2); TOTAL PROTEIN 4.6 G/DL (5.7-8.2)
[2023-05-23] MEDS: SENOKOT S TAB PO SCH (11:23)
[2023-05-24] VITALS (35 sets, daily range): BP systolic 134–170; BP diastolic 63–90; TEMP 96.7–97.7; O2SAT 92–97
[2023-05-24 05:53] LABS: HEMATOCRIT 26.4 % (42.0-52.0); HEMOGLOBIN 8.5 g/dl (13.5-17.5); MEAN CORPUSCULAR HEMOGLOBIN 28.3 pg (27.0-33.0); MEAN CORPUSCULAR HGB CONC 32.2 g/dl (32.0-36.5); PLATELET COUNT, AUTOMATED 383 10^3/uL (150-450); WHITE BLOOD COUNT 26.2 10^3/uL (4.0-10.0)
[2023-05-24 06:16] LABS: ALBUMIN 1.9 G/DL (3.2-5.2); BILIRUBIN,TOTAL 0.9 MG/DL (0.3-1.2); CALCIUM LEVEL 8.7 MG/DL (8.3-10.6); CREATININE FOR GFR 1.26 MG/DL (0.70-1.30); GLOMERULAR FILTRATION RATE 59.4 (>42); MAGNESIUM LEVEL 2.1 MG/DL (1.8-2.4); TOTAL PROTEIN 4.5 G/DL (5.7-8.2)
[2023-05-24 06:26] LABS: ATYPICAL LYMPH 2 % (0-5); EOSINOPHILS 2 % (0-3); LYMPHOCYTES 5 % (16-44); METAMYELOCYTES 2 % (0-0); MONOCYTES 4 % (0-5); MYELOCYTES 1 % (0-0); NEUTROPHILS 79 % (28-66)
[2023-05-24 06:27] LABS: ANISOCYTOSIS 1+; PLATELET ESTIMATE NORMAL (NORMAL)
[2023-05-24] MEDS ORDERED: SYMBICORT 160/4.5MCG INHALER 6GM INH SCH (08:00)
[2023-05-24] MEDS: predniSONE 20 MG TAB PO SCH (08:28)
[2023-05-24] MEDS: MIRALAX *UNIT DOSE* 17GM PACKET PO SCH (08:28)
[2023-05-24 09:16] LABS: PROCALCITONIN 1.92 ng/ml
[2023-05-24] MEDS ORDERED: CARVedilol 6.25 MG TAB PO SCH (11:20)
[2023-05-24] MEDS: FUROSEMIDE 20MG/2ML VIAL IV ONE (12:15)
[2023-05-24] MEDS: CARVedilol 3.125 MG TAB PO ONE (12:16)
[2023-05-24] MEDS: LEVALBUTEROL 1.25MG 0.5ML CONCENTRATE NEB INH SCH (12:44)
[2023-05-24] MEDS ORDERED: LEVALBUTEROL 1.25MG 0.5ML CONCENTRATE NEB INH SCH (16:00)
[2023-05-24] MEDS: BUDESONIDE 0.5 MG/2 ML INHALATION SUSPENSION NEB SCH (20:20)
[2023-05-24] MEDS: CARVedilol 6.25 MG TAB PO SCH (20:40)
[2023-05-25] VITALS (42 sets, daily range): BP systolic 82–166; BP diastolic 48–94; TEMP 96.5–99.2; O2SAT 85–100
[2023-05-25 06:15] LABS: EOS # 0.4 10^3/uL (0.0-0.5); EOS % 1.5 % (0.0-3.0); HEMATOCRIT 28.1 % (42.0-52.0); HEMOGLOBIN 9.2 g/dl (13.5-17.5); LYMPH # 2.1 10^3/uL (1.5-5.0); LYMPH % 8.7 % (24.0-44.0); MEAN CORPUSCULAR HEMOGLOBIN 28.4 pg (27.0-33.0); MEAN CORPUSCULAR HGB CONC 32.7 g/dl (32.0-36.5); MEAN CORPUSCULAR VOLUME 86.7 fl (80.0-96.0); MONO # 1.9 10^3/uL (0.0-0.8); MONO % 7.7 % (2.0-8.0); NEUTROPHILS # 15.7 10^3/uL (1.5-8.5); NEUTROPHILS % 64.5 % (36.0-66.0); PLATELET COUNT, AUTOMATED 440 10^3/uL (150-450); RED BLOOD COUNT 3.24 10^6/uL (4.30-6.10); WHITE BLOOD COUNT 24.4 10^3/uL (4.0-10.0)
[2023-05-25 06:48] LABS: ALBUMIN 2.1 G/DL (3.2-5.2); ALKALINE PHOSPHATASE 179 U/L (46-116); ALT/SGPT 141 U/L (7.0-40); AST/SGOT 27 U/L (<34); BILIRUBIN,TOTAL 1.1 MG/DL (0.3-1.2); BLOOD UREA NITROGEN 24 MG/DL (9-23); CALCIUM LEVEL 8.8 MG/DL (8.3-10.6); CARBON DIOXIDE LEVEL 34 MMOL/L (20-31); CHLORIDE LEVEL 100 MMOL/L (98-107); CREATININE FOR GFR 1.15 MG/DL (0.70-1.30); GLOMERULAR FILTRATION RATE > 60.0 (>42); GLUCOSE, FASTING 90 MG/DL (74-106); MAGNESIUM LEVEL 1.8 MG/DL (1.8-2.4); POTASSIUM SERUM 3.8 MMOL/L (3.5-5.1); SODIUM LEVEL 138 MMOL/L (136-145); TOTAL PROTEIN 4.8 G/DL (5.7-8.2)
[2023-05-25] MEDS: FUROSEMIDE 20MG/2ML VIAL IV ONE (11:45)
[2023-05-25] MEDS: BUPRENORPHINE/NALOXONE 2-0.5MG SUBLINGUAL TABLET(SUBOXONE) SL SCH (14:03)
[2023-05-25] MEDS ORDERED: EMLA CREAM 5GM TUBE (LIDOCAINE/PRILOCAINE) TOP PRN (17:00)
[2023-05-25] MEDS: RAMELTEON 8 MG TAB (ROZEREM) PO SCH (21:00)
[2023-05-25] MEDS: PARoxetine 20MG TABLET PO SCH (21:00)
[2023-05-25] MEDS ORDERED: FUROSEMIDE 40MG/4ML VIAL As Ordered ONE (21:26)
[2023-05-25] MEDS: FUROSEMIDE 40MG/4ML VIAL IV ONE (21:45)
[2023-05-25] MEDS: NS 500 ML IV ONE ×3 (21:50→23:59)
[2023-05-25] MEDS ORDERED: PHENYLEPHRINE 10MG/ML 1ML VIAL As Ordered ONE (21:57)
[2023-05-25 21:59] LABS: ABG HCO3 19.8 MMOL/L (22.0-26.0); ABG O2 SATURATION 98.9 % (95.0-99.0); ABG PARTIAL PRESSURE O2 252.6 mmHg (75.0-100.0); ABG STANDARD HCO3 16.4 MMOL/L. (22.0-26.0); ABG TOTAL CO2 21.8 MMOL/L (23.0-31.0)
[2023-05-25 22:01] LABS: ABG PARTIAL PRESSURE CO2 64.9 mmHg (35.0-45.0); ABG pH (ARTERIAL) 7.102 UNITS (7.350-7.450)
[2023-05-25] MEDS ORDERED: MIDAZOLAM INJ 2MG/2ML VIAL As Ordered ONE (22:14)
[2023-05-25] MEDS: ALBUTEROL SULFATE 2.5MG/0.5ML INH NEB SOLN NEB ONE (22:15)
[2023-05-25] MEDS: MIDAZOLAM INJ 2MG/2ML VIAL IV STA ×2 (22:20→22:31)
[2023-05-25 22:21] LABS: CALCIUM LEVEL 9.4 MG/DL (8.3-10.6); CREATININE FOR GFR 1.55 MG/DL (0.70-1.30); GLOMERULAR FILTRATION RATE 46.8 (>42); MAGNESIUM LEVEL 2.3 MG/DL (1.8-2.4); POTASSIUM SERUM 4.6 MMOL/L (3.5-5.1)
[2023-05-25] MEDS ORDERED: MIDAZOLAM 5MG/ML 1ML VIAL IV STA (22:29)
[2023-05-25] MEDS ORDERED: MIDAZOLAM 5MG/ML 1ML VIAL As Ordered ONE (22:30)
[2023-05-25] MEDS ORDERED: FENTANYL DRIP LOCK BOX KEY 1 EACH XX PRN (22:40)
[2023-05-25] MEDS: MIDAZOLAM 100MG/100ML-0.9%NACL 100 MG in IV 1 EA IV SCH (22:48)
[2023-05-25] MEDS: NOREPINEPHRINE 4MG IN D5 250ML 4 MG in IV 1 EA IV SCH (22:48)
[2023-05-25] MEDS: fentaNYL CITRATE/NaCl 1,000 MCG in IV 1 EA IV SCH (22:49)
[2023-05-25 22:53] LABS: HEMATOCRIT 21.6 % (42.0-52.0); MEAN CORPUSCULAR HEMOGLOBIN 29.4 pg (27.0-33.0); MEAN CORPUSCULAR HGB CONC 31.5 g/dl (32.0-36.5); MEAN CORPUSCULAR VOLUME 93.5 fl (80.0-96.0); PLATELET COUNT, AUTOMATED 458 10^3/uL (150-450); RED BLOOD COUNT 2.31 10^6/uL (4.30-6.10)
[2023-05-25 22:59] LABS: HEMOGLOBIN 6.8 g/dl (13.5-17.5); WHITE BLOOD COUNT 69.5 10^3/uL (4.0-10.0)
[2023-05-25] MEDS ORDERED: FUROSEMIDE injection 250 MG in D5W 225 ML IV SCH (23:00)
[2023-05-25] MEDS: PHENYLEPHRINE 10MG/ML 1ML VIAL IV ONE (23:15)
[2023-05-26] VITALS (109 sets, daily range): BP systolic 93–150; BP diastolic 49–95; TEMP 97–98.5; O2SAT 95–100
[2023-05-26] MEDS: VASOPRESSIN INJ 20 UNITS in NS 499 ML IV SCH
[2023-05-26 00:06] LABS: ABG BASE EXCESS -2.5 (-2.0-2.0); ABG HCO3 23.5 MMOL/L (22.0-26.0); ABG O2 SATURATION 98.9 % (95.0-99.0); ABG PARTIAL PRESSURE CO2 46.5 mmHg (35.0-45.0); ABG PARTIAL PRESSURE O2 252.1 mmHg (75.0-100.0); ABG STANDARD HCO3 22.4 MMOL/L. (22.0-26.0); ABG TOTAL CO2 24.9 MMOL/L (23.0-31.0); ABG pH (ARTERIAL) 7.321 UNITS (7.350-7.450)
[2023-05-26] MEDS: PANTOPRAZOLE 40MG VIAL IV SCH (00:10)
[2023-05-26] MEDS: PANTOPRAZOLE SODIUM 40 MG in D5W 50 ML IV SCH (00:10)
[2023-05-26 00:34] LABS: LYMPHOCYTES 14 % (16-44); METAMYELOCYTES 6 % (0-0); MONOCYTES 6 % (0-5); MYELOCYTES 4 % (0-0); NEUTROPHILS 65 % (28-66); PLATELET ESTIMATE INCREASED (NORMAL)
[2023-05-26 00:35] LABS: ANISOCYTOSIS 1+
[2023-05-26 00:36] LABS: PLATELET CLUMPS SMALL AMT
[2023-05-26 00:37] LABS: POIKILOCYTOSIS 1+
[2023-05-26 06:04] LABS: HEMATOCRIT 26.7 % (42.0-52.0); MEAN CORPUSCULAR HEMOGLOBIN 28.6 pg (27.0-33.0); MEAN CORPUSCULAR VOLUME 86.7 fl (80.0-96.0); RED BLOOD COUNT 3.08 10^6/uL (4.30-6.10)
[2023-05-26 06:10] LABS: HEMOGLOBIN 8.8 g/dl (13.5-17.5); WHITE BLOOD COUNT 52.5 10^3/uL (4.0-10.0)
[2023-05-26 06:11] LABS: PLATELET COUNT, AUTOMATED 335 10^3/uL (150-450)
[2023-05-26 06:15] LABS: ABG HCO3 25.6 MMOL/L (22.0-26.0); ABG O2 SATURATION 96.6 % (95.0-99.0); ABG PARTIAL PRESSURE CO2 40.5 mmHg (35.0-45.0); ABG PARTIAL PRESSURE O2 89.1 mmHg (75.0-100.0); ABG STANDARD HCO3 25.4 MMOL/L. (22.0-26.0); ABG TOTAL CO2 26.8 MMOL/L (23.0-31.0); ABG pH (ARTERIAL) 7.418 UNITS (7.350-7.450)
[2023-05-26 06:33] LABS: ALBUMIN 1.6 G/DL (3.2-5.2); BILIRUBIN,TOTAL 1.6 MG/DL (0.3-1.2); CALCIUM LEVEL 6.9 MG/DL (8.3-10.6); CREATININE FOR GFR 1.78 MG/DL (0.70-1.30); GLOMERULAR FILTRATION RATE 39.9 (>42); MAGNESIUM LEVEL 1.7 MG/DL (1.8-2.4); POTASSIUM SERUM 3.7 MMOL/L (3.5-5.1); TOTAL PROTEIN 3.6 G/DL (5.7-8.2)
[2023-05-26] MEDS: MIDAZOLAM INJ 2MG/2ML VIAL IV STA (07:22)
[2023-05-26] MEDS: MAG SULF 1GM/100ML (MAG RUN) 1 GM in IV 1 EA IV SCH (09:10)
[2023-05-26] MEDS: HYDROCORTISONE 100MG/2ML VIAL IV ONE (09:10)
[2023-05-26] MEDS: HYDROCORTISONE 100MG/2ML VIAL IV SCH (17:22)
[2023-05-26] MEDS: AMINO AC/ELECTROLYTE/DEX/CALC 2,000 ML IV SCH (18:13)
[2023-05-26] MEDS: FAT EMULSION IV 250 ML IV ONE (18:13)
[2023-05-26 18:23] LABS: HEMATOCRIT 23.6 % (42.0-52.0); MEAN CORPUSCULAR HEMOGLOBIN 28.9 pg (27.0-33.0); MEAN CORPUSCULAR HGB CONC 33.9 g/dl (32.0-36.5); MEAN CORPUSCULAR VOLUME 85.2 fl (80.0-96.0); PLATELET COUNT, AUTOMATED 306 10^3/uL (150-450); RED BLOOD COUNT 2.77 10^6/uL (4.30-6.10)
[2023-05-26 18:30] LABS: WHITE BLOOD COUNT 36.5 10^3/uL (4.0-10.0)
[2023-05-26 18:43] LABS: ALBUMIN 1.7 G/DL (3.2-5.2); BILIRUBIN,TOTAL 1.7 MG/DL (0.3-1.2); CALCIUM LEVEL 7.1 MG/DL (8.3-10.6); CREATININE FOR GFR 1.98 MG/DL (0.70-1.30); GLOMERULAR FILTRATION RATE 35.3 (>42); POTASSIUM SERUM 3.7 MMOL/L (3.5-5.1); TOTAL PROTEIN 3.8 G/DL (5.7-8.2)
[2023-05-26 19:16] LABS: LYMPHOCYTES 12 % (16-44); METAMYELOCYTES 3 % (0-0); MONOCYTES 5 % (0-5); MYELOCYTES 6 % (0-0); NEUTROPHILS 73 % (28-66); PLATELET ESTIMATE NORMAL (NORMAL)
[2023-05-26 19:19] LABS: ANISOCYTOSIS 1+
[2023-05-26 19:21] LABS: PLATELET CLUMPS SMALL AMT
[2023-05-26] MEDS: INSULIN LISPRO (NovoLOG) PER UNIT SC SCH (20:00)
[2023-05-27] VITALS (49 sets, daily range): BP systolic 92–175; BP diastolic 50–102; TEMP 97–99; O2SAT 92–100
[2023-05-27] MEDS ORDERED: HYDROCORTISONE 100MG/2ML VIAL IV ONE
[2023-05-27] MEDS: ALBUTEROL SULFATE 2.5MG/0.5ML INH NEB SOLN NEB ONE (01:40)
[2023-05-27 02:58] LABS: ABG BASE EXCESS 1.2 (-2.0-2.0); ABG HCO3 26.4 MMOL/L (22.0-26.0); ABG O2 SATURATION 98.4 % (95.0-99.0); ABG PARTIAL PRESSURE CO2 44.9 mmHg (35.0-45.0); ABG PARTIAL PRESSURE O2 135.2 mmHg (75.0-100.0); ABG STANDARD HCO3 25.5 MMOL/L. (22.0-26.0); ABG TOTAL CO2 27.8 MMOL/L (23.0-31.0); ABG pH (ARTERIAL) 7.387 UNITS (7.350-7.450)
[2023-05-27 04:56] LABS: HEMATOCRIT 22.4 % (42.0-52.0); HEMOGLOBIN 7.3 g/dl (13.5-17.5); MEAN CORPUSCULAR HEMOGLOBIN 28.3 pg (27.0-33.0); MEAN CORPUSCULAR HGB CONC 32.6 g/dl (32.0-36.5); MEAN CORPUSCULAR VOLUME 86.8 fl (80.0-96.0); PLATELET COUNT, AUTOMATED 233 10^3/uL (150-450); RED BLOOD COUNT 2.58 10^6/uL (4.30-6.10)
[2023-05-27 04:58] LABS: WHITE BLOOD COUNT 32.9 10^3/uL (4.0-10.0)
[2023-05-27 05:30] LABS: ATYPICAL LYMPH 1 % (0-5); LYMPHOCYTES 3 % (16-44); METAMYELOCYTES 1 % (0-0); MONOCYTES 5 % (0-5); MYELOCYTES 6 % (0-0); NEUTROPHILS 84 % (28-66)
[2023-05-27 05:31] LABS: PLATELET ESTIMATE NORMAL (NORMAL)
[2023-05-27 05:32] LABS: ANISOCYTOSIS 1+
[2023-05-27 05:34] LABS: OVALOCYTES 1+
[2023-05-27 05:39] LABS: ALBUMIN 1.7 G/DL (3.2-5.2); BILIRUBIN,TOTAL 0.8 MG/DL (0.3-1.2); CALCIUM LEVEL 7.4 MG/DL (8.3-10.6); CREATININE FOR GFR 2.04 MG/DL (0.70-1.30); GLOMERULAR FILTRATION RATE 34.1 (>42); MAGNESIUM LEVEL 2.2 MG/DL (1.8-2.4); PHOSPHORUS LEVEL 5.2 MG/DL (2.4-5.1); POTASSIUM SERUM 3.6 MMOL/L (3.5-5.1); TOTAL PROTEIN 3.8 G/DL (5.7-8.2)
[2023-05-27 05:47] LABS: ABG BASE EXCESS -0.5 (-2.0-2.0); ABG O2 SATURATION 98.5 % (95.0-99.0); ABG PARTIAL PRESSURE CO2 38.8 mmHg (35.0-45.0); ABG PARTIAL PRESSURE O2 117.1 mmHg (75.0-100.0); ABG STANDARD HCO3 24.1 MMOL/L. (22.0-26.0); ABG TOTAL CO2 25.2 MMOL/L (23.0-31.0)
[2023-05-27] MEDS ORDERED: propofoL 1,000 MG in IV 1 EA IV SCH (08:30)
[2023-05-27] MEDS: HYDROCORTISONE 100MG/2ML VIAL IV SCH (09:06)
[2023-05-27] MEDS: GLYCOPYRROLATE INJ 0.2 MG/ML 2 ML VIAL NEB SCH (10:44)
[2023-05-27] MEDS: IPRATROPIUM 0.5MG/ALBUTEROL 2.5MG INH SOL UD 3ML (DUONEB) NEB PRN (11:15)
[2023-05-27 15:18] LABS: ABG BASE EXCESS 2.9 (-2.0-2.0); ABG HCO3 27.3 MMOL/L (22.0-26.0); ABG O2 SATURATION 95.5 % (95.0-99.0); ABG PARTIAL PRESSURE CO2 40.8 mmHg (35.0-45.0); ABG PARTIAL PRESSURE O2 72.9 mmHg (75.0-100.0); ABG STANDARD HCO3 27.1 MMOL/L. (22.0-26.0); ABG TOTAL CO2 28.5 MMOL/L (23.0-31.0); ABG pH (ARTERIAL) 7.443 UNITS (7.350-7.450)
[2023-05-27] MEDS ORDERED: IPRATROPIUM 0.06% NASAL SPRAY 15 ML (ATROVENT) PRN (17:30)
[2023-05-27] MEDS: INSULIN LISPRO (NovoLOG) PER UNIT SC SCH (18:00)
[2023-05-27] MEDS: AMINO AC/ELECTROLYTE/DEX/CALC 2,000 ML IV SCH (18:16)
[2023-05-27] MEDS: FAT EMULSION IV 250 ML IV ONE (18:16)
[2023-05-27] MEDS: CARVedilol 6.25 MG TAB PO SCH (18:45)
[2023-05-27] MEDS: BUPRENORPHINE/NALOXONE 2-0.5MG SUBLINGUAL TABLET(SUBOXONE) SL SCH (19:34)
[2023-05-27] MEDS: ACETAMINOPHEN TAB 650MG DOSE (2X325MG) PO PRN (19:35)
[2023-05-27] MEDS: SODIUM CHLORIDE 0.9% INJ 10 ML SYR IV PRN (19:39)
[2023-05-27 20:44] LABS: HEMOGLOBIN 8.5 g/dl (13.5-17.5)
[2023-05-27] MEDS: SENNA 8.6 MG TAB (SENOKOT) PO SCH (20:45)
[2023-05-27] MEDS ORDERED: ARTIFICIAL TEARS DROPS 15ML BTL (VISINE DRY RELIEF) OU PRN (20:50)
[2023-05-27] MEDS: LOSARTAN 50MG TABLET PO SCH (21:01)
[2023-05-27] MEDS: PARoxetine 20MG TABLET PO ONE (21:04)
[2023-05-28] VITALS (8 sets, daily range): BP systolic 125–151; BP diastolic 54–84; TEMP 98.4–98.5; O2SAT 90–98
[2023-05-28 04:32] LABS: HEMATOCRIT 23.8 % (42.0-52.0); MEAN CORPUSCULAR HEMOGLOBIN 28.4 pg (27.0-33.0); MEAN CORPUSCULAR HGB CONC 33.6 g/dl (32.0-36.5); MEAN CORPUSCULAR VOLUME 84.4 fl (80.0-96.0); PLATELET COUNT, AUTOMATED 224 10^3/uL (150-450); RED BLOOD COUNT 2.82 10^6/uL (4.30-6.10); WHITE BLOOD COUNT 22.5 10^3/uL (4.0-10.0)
[2023-05-28 05:01] LABS: ATYPICAL LYMPH 1 % (0-5); EOSINOPHILS 1 % (0-3); LYMPHOCYTES 9 % (16-44); METAMYELOCYTES 2 % (0-0); MONOCYTES 5 % (0-5); MYELOCYTES 2 % (0-0); NEUTROPHILS 77 % (28-66)
[2023-05-28 05:02] LABS: ANISOCYTOSIS 1+; PLATELET ESTIMATE NORMAL (NORMAL)
[2023-05-28 05:04] LABS: POLYCHROMASIA 1+
[2023-05-28 05:06] LABS: ALBUMIN 1.8 G/DL (3.2-5.2); BILIRUBIN,TOTAL 0.9 MG/DL (0.3-1.2); CALCIUM LEVEL 7.4 MG/DL (8.3-10.6); CREATININE FOR GFR 1.74 MG/DL (0.70-1.30); GLOMERULAR FILTRATION RATE 40.9 (>42); MAGNESIUM LEVEL 2.2 MG/DL (1.8-2.4); PHOSPHORUS LEVEL 3.4 MG/DL (2.4-5.1); POTASSIUM SERUM 3.8 MMOL/L (3.5-5.1)
[2023-05-28] MEDS: LORATADINE 10 MG TAB PO SCH (08:28)
[2023-05-28] MEDS: SPIRONOLACTONE 25 MG TAB PO SCH (08:28)
[2023-05-28] MEDS ORDERED: PARoxetine 20MG TABLET PO SCH (09:00)
[2023-05-28] MEDS: PARoxetine 20MG TABLET PO SCH (13:12)
[2023-05-28] MEDS ORDERED: LORazepam 2 MG/ML 1ML VIAL As Ordered ONE (14:51)
[2023-05-28] MEDS ORDERED: LORazepam 2 MG/ML 1ML VIAL IV PRN (14:55)
[2023-05-28] MEDS ORDERED: SCOPOLAMINE 1MG TRANSDERMAL PATCH TOP PRN (14:55)
[2023-05-28] MEDS ORDERED: ONDANSETRON 4MG 2ML VIAL IV PRN (14:55)
[2023-05-28] MEDS ORDERED: MORPHINE 2 MG/ML 1ML VIAL IV PRN (14:55)
[2023-05-28] MEDS: LORazepam 2 MG/ML 1ML VIAL IV STA (14:56)
[2023-05-28] MEDS: MORPHINE 2 MG/ML 1ML VIAL IV STA (14:56)
[2023-05-28] MEDS ORDERED: HYDROCORTISONE 100MG/2ML VIAL IV SCH (21:00)
[2023-05-28] MEDS ORDERED: PANTOPRAZOLE 40MG VIAL IV SCH (21:00)
== END 2023-05-28 15:14 | disposition expired | DRG 871 ==
LOC: EDBD 18:06 → M ED 18:06 → M ED INP 23:14 → M ICU 05-21 00:46 → M PCU 05-22 14:41 → M MSPAV 05-25 15:52 → M ICU 05-25 21:37
PROVIDERS: ADMIT Family Medicine; ATTEND Internal Medicine Pulmonary Disease
PROC: 30233N1 Transfusion of Nonautologous Red Blood Cells into Peripheral Vein, Percutaneous Approach (ICD-10-PCS; 2023-05-20)
PROC: 0BH17EZ Insertion of Endotracheal Airway into Trachea, Via Natural or Artificial Opening (ICD-10-PCS; principal; 2023-05-25)
PROC: 06HM33Z Insertion of Infusion Device into Right Femoral Vein, Percutaneous Approach (ICD-10-PCS; 2023-05-25)
PROC: 03HY32Z Insertion of Monitoring Device into Upper Artery, Percutaneous Approach (ICD-10-PCS; 2023-05-25)
PROC: 5A1945Z Respiratory Ventilation, 24-96 Consecutive Hours (ICD-10-PCS; 2023-05-25)
PROC: 0DJ08ZZ Inspection of Upper Intestinal Tract, Via Natural or Artificial Opening Endoscopic (ICD-10-PCS; 2023-05-26)
DX: A41.51 Sepsis due to Escherichia coli [E. coli] (principal); J96.21 Acute and chronic respiratory failure with hypoxia; G93.41 Metabolic encephalopathy; K72.00 Acute and subacute hepatic failure without coma; J96.02 Acute respiratory failure with hypercapnia; C25.0 Malignant neoplasm of head of pancreas; K62.5 Hemorrhage of anus and rectum; J44.1 Chronic obstructive pulmonary disease with (acute) exacerbation; T85.520A Displacement of bile duct prosthesis, initial encounter; D62 Acute posthemorrhagic anemia; I50.32 Chronic diastolic (congestive) heart failure; K92.0 Hematemesis; E27.40 Unspecified adrenocortical insufficiency; N17.9 Acute kidney failure, unspecified; Z51.5 Encounter for palliative care; Z66 Do not resuscitate; I11.0 Hypertensive heart disease with heart failure; K21.9 Gastro-esophageal reflux disease without esophagitis; E78.5 Hyperlipidemia, unspecified; F32.A Depression, unspecified; R74.01 Elevation of levels of liver transaminase levels; R10.9 Unspecified abdominal pain; S42.292D Other displaced fracture of upper end of left humerus, subsequent encounter for fracture with routine healing; I71.40 Abdominal aortic aneurysm, without rupture, unspecified; G89.4 Chronic pain syndrome; R65.20 Severe sepsis without septic shock; K59.03 Drug induced constipation; T40.2X5A Adverse effect of other opioids, initial encounter; Y83.1 Surgical operation with implant of artificial internal device as the cause of abnormal reaction of the patient, or of later complication, without mention of misadventure at the time of the procedure; K29.70 Gastritis, unspecified, without bleeding; K31.89 Other diseases of stomach and duodenum; R57.1 Hypovolemic shock; S42.202D Unspecified fracture of upper end of left humerus, subsequent encounter for fracture with routine healing; R94.5 Abnormal results of liver function studies; G89.3 Neoplasm related pain (acute) (chronic); Z99.81 Dependence on supplemental oxygen; E83.42 Hypomagnesemia; Z79.69 Long term (current) use of other immunomodulators and immunosuppressants; Z90.49 Acquired absence of other specified parts of digestive tract; Z95.828 Presence of other vascular implants and grafts; Z79.52 Long term (current) use of systemic steroids; Z79.899 Other long term (current) drug therapy; Z87.891 Personal history of nicotine dependence; Z88.8 Allergy status to other drugs, medicaments and biological substances; Z86.73 Personal history of transient ischemic attack (TIA), and cerebral infarction without residual deficits